=== PATIENT | female | born 1980 | race Caucasian/White ===

== ENCOUNTER 2019-02-04 18:31 | Inpatient (IN) | payer OTHER ==
[~2019-02-04] VITALS: Ht 165.1 cm; Wt 108.9 kg
[~2019-02-04 18:31] MED LIST: ALBU2.5V5 IH
[2019-02-04 19:00] LABS: BASO # 0.1 x10^3/uL (0.0-0.2); BASO % 1 % (0-3); EOS # 0.2 x10^3/uL (0.0-0.7); EOS % 3 % (0-3); HEMATOCRIT 43.3 % (36.0-47.0); HEMOGLOBIN 14.2 g/dL (12.0-15.5); LYMPH # 2.2 x10^3/uL (1.0-4.8); LYMPH % 27 % (24-48); MEAN CORPUSCULAR HEMOGLOBIN 27 pg (25-35); MEAN CORPUSCULAR HGB CONC 33 g/dL (31-37); MEAN CORPUSCULAR VOLUME 84 fL (79-100); MONO # 0.6 x10^3/uL (0.0-1.1); MONO % 7 % (0-9); NEUT % 62 % (31-73); PLATELET COUNT 215 x10^3/uL (140-400); RED BLOOD COUNT 5.18 x10^6/uL (3.50-5.40); RED CELL DISTRIBUTION WIDTH 13.7 % (11.5-14.5); WHITE BLOOD COUNT 8.2 x10^3/uL (4.0-11.0)
[2019-02-04] MEDS ORDERED: ASPIRIN CHEWABLE 81 MG TABLET. PO ONE (19:00)
--- NOTE | 2019-02-04 19:00 | PHYS DOC ---
Past Medical History Past Medical History: Anxiety, Arthritis, Asthma, Bipolar, Depression, Diabetes-Type II, Hypertension, Kidney Infection, Stroke, UTI, Other Additional Past Medical Histor: DDD, STRESS FX LOWER BACK, GESTATIONAL STROKE Past Surgical History: Appendectomy, Cholecystectomy Additional Past Surgical Histo: D&C Alcohol Use: None Drug Use: None Adult General Chief Complaint Chief Complaint: CHEST PAIN HPI HPI Patient is a 38 year old female presented to ER by EMS for evaluation of left substernal chest pain radiating through to her back that been going OFF AND ON for 2 weeks. He denies any cough fever, no trouble breathing. Patient has history of ENLARGED HEART and hypertension. Patient is supposed to be on carvedilol, she ran out of her medication for several months. She has not seen her heart doctor at [facility] FOR A WHILE. She denies any history of diabetic, no history of smoking. Patient had no history of blood clot disorder, no recent travel or operation. Patient described the pain as aching, squeezing in nature. All other ROS is negative unless otherwise noted in HPI Review of Systems Review of Systems See above Current Medications Current Medications Current Medications Medications (Trade) Dose Ordered Sig/Alyse Start Time Stop Time Status Last Admin Dose Admin Aspirin (Children'S Aspirin) 324 mg 1X ONCE 02/04/19 19:00 02/04/19 19:01 DC Enoxaparin Sodium (Lovenox 120mg Syringe) 110 mg 1X ONCE 02/04/19 20:00 02/04/19 20:01 Metoprolol Tartrate (Lopressor Vial) 5 mg 1X ONCE 02/04/19 19:30 02/04/19 19:31 DC Nitroglycerin (Nitrostat) 0.4 mg PRN Q5MIN PRN 02/04/19 19:30 Allergies Allergies Allergies Coded Allergies Type Severity Reaction Last Updated Verified morphine Allergy Intermediate HIVES, ABD CRAMPS 5/7/14 Yes ondansetron HCl Allergy Mild ABD CRAMPS 5/7/14 Yes Physical Exam Physical Exam See above Constitutional: Well developed, well nourished, no acute distress, non-toxic appearance. [] HENT: Normocephalic, atraumatic, bilateral external ears normal, oropharynx moist, no oral exudates, nose normal. [] Eyes: PERRLA, EOMI, conjunctiva normal, no discharge. [] Neck: Normal range of motion, no tenderness, supple, no stridor. [] Cardiovascular:Heart rate regular rhythm, no murmur [] Lungs & Thorax: Bilateral breath sounds clear to auscultation [] Abdomen: Bowel sounds normal, soft, no tenderness, no masses, no pulsatile masses. [] Skin: Warm, dry, no erythema, no rash. [] Back: No tenderness, no CVA tenderness. [] Extremities: No tenderness, no cyanosis, no clubbing, ROM intact, no edema. [] Neurologic: Alert and oriented X 3, normal motor function, normal sensory function, no focal deficits noted. [] Psychologic: Affect normal, judgement normal, mood normal. [] Current Patient Data Vital Signs Vital Signs Date Time Temp Pulse Resp B/P (MAP) Pulse Ox O2 Delivery O2 Flow Rate FiO2 02/04/19 18:44 98.1 78 18 186/108 (134) 99 Room Air 98.1 Lab Values Laboratory Tests Test 02/04/19 18:37 White Blood Count 8.2 x10^3/uL (4.0-11.0) Red Blood Count 5.18 x10^6/uL (3.50-5.40) Hemoglobin 14.2 g/dL (12.0-15.5) Hematocrit 43.3 % (36.0-47.0) Mean Corpuscular Volume 84 fL (79-100) Mean Corpuscular Hemoglobin 27 pg (25-35) Mean Corpuscular Hemoglobin Concent 33 g/dL (31-37) Red Cell Distribution Width 13.7 % (11.5-14.5) Platelet Count 215 x10^3/uL (140-400) Neutrophils (%) (Auto) 62 % (31-73) Lymphocytes (%) (Auto) 27 % (24-48) Monocytes (%) (Auto) 7 % (0-9) Eosinophils (%) (Auto) 3 % (0-3) Basophils (%) (Auto) 1 % (0-3) Neutrophils # (Auto) 5.0 x10^3/uL (1.8-7.7) Lymphocytes # (Auto) 2.2 x10^3/uL (1.0-4.8) Monocytes # (Auto) 0.6 x10^3/uL (0.0-1.1) Eosinophils # (Auto) 0.2 x10^3/uL (0.0-0.7) Basophils # (Auto) 0.1 x10^3/uL (0.0-0.2) Prothrombin Time 12.5 SEC (11.7-14.0) Prothrombin Time INR 1.0 (0.8-1.1) Sodium Level 142 mmol/L (136-145) Potassium Level 3.9 mmol/L (3.5-5.1) Chloride Level 105 mmol/L (98-107) Carbon Dioxide Level 30 mmol/L (21-32) Anion Gap 7 (6-14) Blood Urea Nitrogen 15 mg/dL (7-20) Creatinine 1.0 mg/dL (0.6-1.0) Estimated GFR (Cockcroft-Gault) 62.1 BUN/Creatinine Ratio 15 (6-20) Glucose Level 110 mg/dL (70-99) H Calcium Level 8.8 mg/dL (8.5-10.1) Magnesium Level 1.9 mg/dL (1.8-2.4) Total Bilirubin 0.3 mg/dL (0.2-1.0) Aspartate Amino Transferase (AST) 18 U/L (15-37) Alanine Aminotransferase (ALT) 20 U/L (14-59) Alkaline Phosphatase 77 U/L (46-116) Troponin I Quantitative 0.747 ng/mL (0.000-0.055) FC-Bam-U-Type Natriuretic Peptide 1830 pg/mL (0-124) H Total Protein 6.6 g/dL (6.4-8.2) Albumin 3.1 g/dL (3.4-5.0) L Albumin/Globulin Ratio 0.9 (1.0-1.7) L Lipase 150 U/L (73-393) Laboratory Tests 02/04/19 18:37 Laboratory Tests 02/04/19 18:37 EKG EKG EKG was read by this physician at 1842, sinus rhythm, heart rate of 72 beats per minutes, no STEMI. Radiology/Procedures Radiology/Procedures [][facility] [address] [place] [address] IMAGING REPORT Signed PATIENT: ESTEPHANIA VARGHESE SACCOUNT: [id number] : 1980 LOCATION: ER AGE: 38 SEX: F EXAM STATUS: PRE ER ORD. PHYSICIAN: COLBY GALLARDO DO REASON: chest pain PROCEDURE: PORTABLE CHEST 1V Study: PORTABLE CHEST 1V Indication: Chest pain. Comparison: None recent Findings: The cardiomediastinal silhouette is enlarged. No lobar infiltrate, layering effusion or pneumothorax. No overt central vascular congestion. Impression: The cardiomediastinal silhouette is enlarged but without radiographic findings of overt failure. Electronically signed by: YVON HAMMER MD (02/04/2019 7:31 PM) [facility] DICTATED and SIGNED BY: YVON HAMMER MD DATE: 02/04/191930 Course & Med Decision Making Course & Med Decision Making Pertinent Labs and Imaging studies reviewed. (See chart for details) Patient'S troponin is elevated, her blood pressure elevated. Patient was admitted to hospital for cardiology evaluation. Dragon Disclaimer Dragon Disclaimer This electronic medical record was generated, in whole or in part, using a voice recognition dictation system. The HEART Score for CP Pts HEART Score for Chest Pain: HEART Score for Chest Pain Response (Comments) Value History Moderately Suspicious 1 ECG Nonspecific Repolarizatio 1 Age < 45 0 Risk Factors 1 or 2 Risk Factors 1 Troponin >3 x Normal Limit 2 Total 5 Risk Factors: Risk Factors: DM, Current or recent (<one month) smoker, HTN, HLP, family his tory of CAD, obesity. Risk Scores: Score 0 - 3: 2.5% MACE over next 6 weeks - Discharge Home Score 4 - 6: 20.3% MACE over next 6 weeks - Admit for Clinical Observation Score 7 - 10: 72.7% MACE over next 6 weeks - Early Invasive Strategies Departure Departure Impression: Primary Impression: NSTEMI (non-ST elevated myocardial infarction) Additional Impression: Hypertension Disposition: ADMITTED INPATIENT Admitting Physician: LETTY (MIGUELINA) Condition: STABLE Referrals: BHAKTI MALONE MD (PCP) Problem Qualifiers COLBY GALLARDO DO Feb 04, 2019 19:00
[2019-02-04 19:08] LABS: PROTHROMBIN TIME PATIENT 12.5 SEC (11.7-14.0)
[2019-02-04 19:12] LABS: CALCIUM 8.8 mg/dL (8.5-10.1); GFR 62.1; POTASSIUM 3.9 mmol/L (3.5-5.1)
[2019-02-04 19:18] LABS: ALBUMIN 3.1 g/dL (3.4-5.0); ALBUMIN/GLOBULIN RATIO 0.9 (1.0-1.7); MAGNESIUM 1.9 mg/dL (1.8-2.4); TOTAL BILIRUBIN 0.3 mg/dL (0.2-1.0); TOTAL PROTEIN 6.6 g/dL (6.4-8.2)
[2019-02-04] MEDS ORDERED: METOPROLOL TARTRATE 5 MG/5 ML VIAL. IVP ONE (19:30)
[2019-02-04] MEDS ORDERED: NITROGLYCERIN SUBLINGUAL 0.4 MG BOTTLE OF 25. SL PRN (19:30)
--- NOTE | 2019-02-04 19:34 | RAD ---
Study: PORTABLE CHEST 1V Indication: Chest pain. Comparison: None recent Findings: The cardiomediastinal silhouette is enlarged. No lobar infiltrate, layering effusion or pneumothorax. No overt central vascular congestion. Impression: The cardiomediastinal silhouette is enlarged but without radiographic findings of overt failure. Electronically signed by: YVON HAMMER MD (02/04/2019 7:31 PM) [facility]
[2019-02-04 21:12] VITALS: BP 194/110
--- NOTE | 2019-02-04 22:19 | NUR ---
Patient arrived to unit at approx 2120 accompanied by ED nurse. No complaints of pain at this time. VS taken- BP elevated. Assessment complete. Patient admits to smoking meth approx 2 1/2 weeks ago, and that she has had a drug problem in the past. Does not drink alcohol. per patient has had 21 miscarriages and 7 live births. Patient also states that she has had a lot of stress and anxiety lately. Orientated patient to unit. Call light in reach, bed in low locked position. Reminded patient to call for assistance when ambulating. Will continue to monitor.
[2019-02-04] MEDS ORDERED: ALBUTEROL SULFATE 2.5 MG/3 ML NEBU. INH PRN (22:45)
[2019-02-04] MEDS ORDERED: METOPROLOL TARTRATE 5 MG/5 ML VIAL. IVP PRN (22:45)
[2019-02-04] MEDS ORDERED: FUROSEMIDE 40 MG/4 ML VIAL. IVP SCH (23:00)
[2019-02-04] MEDS ORDERED: LISINOPRIL 10 MG TABLET PO SCH (23:00)
[2019-02-04 23:13] VITALS: BP 156/105
[2019-02-05] VITALS (18 sets, daily range): BP systolic 117–175; BP diastolic 49–105
[2019-02-05 00:20] LABS: U PREG PATIENT NEGATIVE (NEG)
[2019-02-05 03:49] LABS: BARBITURATES NEG (NEG); BENZODIAZEPINES NEG (NEG); CANNABINOIDS NEG (NEG); COCAINE NEG (NEG); METHADONE NEG (NEG); OPIATES NEG (NEG); PHENCYCLIDINE NEG (NEG)
[2019-02-05 04:02] LABS: AMPHETAMINE/METHAMPHETAMINE NEG (NEG)
[2019-02-05 07:13] LABS: CALCIUM 8.6 mg/dL (8.5-10.1); CREATININE 0.9 mg/dL (0.6-1.0); GFR 70.1; POTASSIUM 4.1 mmol/L (3.5-5.1)
--- NOTE | 2019-02-05 07:32 | EKG ---
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
--- NOTE | 2019-02-05 08:56 | PDOC1 ---
History and Physical Date of Admission Date of Admission DATE: 02/05/19 TIME: 08:54 Identification/Chief Complaint Chief Complaint Chest pain, shortness of breath Source Source: Patient History of Present Illness History of Present Illness Ms Greer is a 38 year old female w/ PMHx chronic CHF, peripartum cardiomyopathy, Anxiety, Asthma, Bipolar, Depression, Diabetes-Type II, Hypertension, gestational CVA, methamphetamine abuse who presented to ER by EMS for evaluation of left substernal chest pain radiating through to her back that been going for 2 weeks. She denies any cough fever, recent sick contacts. On ROS with nursing overnight she admits to using methamphetamine 2.5 weeks ago. She is upset about her friend who is in ICU at our hospital currently. Patient is supposed to be on carvedilol, she ran out of her medication for several months (over a year). She has not seen her security clerk at [facility]. She denies any history of smoking. Patient had no history of blood clot disorder, no recent travel or operation. Patient described the pain as aching, squeezing in nature. BNP 1830, Trop 0.747. Glucose 110. Enlarged heart on CXR. EKG - sinus rhythm, heart rate of 72 beats per minutes, no STEMI. Past Medical History Cardiovascular: HTN Pulmonary: Asthma GI: No pertinent hx Heme/Onc: No pertinent hx Hepatobiliary: No pertinent hx Psych: Addictions, Bipolar, Depression Rheumatologic: No pertinent hx Infectious disease: No pertinent hx ENT: No pertinent hx Renal/: No pertinent hx Endocrine: No pertinent hx Dermatology: No pertinent hx Past Surgical History Past Surgical History: Appendectomy, Cholecystectomy Family History Family History: Coronary Artery Disease, Heart Disease, High Cholestrol, Hypertension Social History Smoke: No ALCOHOL: none Drugs: Crystal meth Current Problem List Problem List Problems Medical Problems: (1) Chest pain Status: Acute (2) Hypertension Status: Acute (3) NSTEMI (non-ST elevated myocardial infarction) Status: Acute Current Medications Current Medications Current Medications Aspirin (Children'S Aspirin) 324 mg 1X ONCE PO ; Start 02/04/19 at 19:00; Stop 02/04/19 at 19:01; Status DC Metoprolol Tartrate (Lopressor Vial) 5 mg 1X ONCE IVP Last administered on 02/04/19at 20:15; Start 02/04/19 at 19:30; Stop 02/04/19 at 19:31; Status DC Nitroglycerin (Nitrostat) 0.4 mg PRN Q5MIN PRN SL CHEST PAIN; Start 02/04/19 at 19:30 Enoxaparin Sodium (Lovenox 120mg Syringe) 110 mg 1X ONCE SQ Last administered on 02/04/19at 20:00; Start 02/04/19 at 20:00; Stop 02/04/19 at 20:01; Status DC Influenza Virus Vaccine Quadrival (Afluria Quad 2019-20 (3yr Up) Syringe) 0.5 ml ONCE ONCE VAX IM ; Start 02/05/19 at 09:00; Stop 02/05/19 at 09:01 Albuterol Sulfate (Ventolin Neb Soln) 2.5 mg PRN Q2HRS PRN INH dyspnea; Start 02/04/19 at 22:45 Furosemide (Lasix) 40 mg BID92 IVP ; Start 02/04/19 at 23:00; Stop 02/05/19 at 00:10; Status DC Metoprolol Tartrate (Lopressor Vial) 5 mg PRN Q6HRS PRN IVP HYPERTENSION; Start 02/04/19 at 22:45 Lisinopril (Prinivil) 10 mg DAILY PO ; Start 02/04/19 at 23:00; Stop 02/05/19 at 00:10; Status DC Furosemide (Lasix) 40 mg BID92 IVP ; Start 02/05/19 at 09:00 Lisinopril (Prinivil) 10 mg DAILY PO ; Start 02/05/19 at 09:00 Active Scripts Active Reported Albuterol Sulfate 2.5 Mg/3 Ml Vial.neb 2.5 Mg IH Allergies Allergies: Coded Allergies: morphine (Verified Allergy, Intermediate, HIVES, ABD CRAMPS, 06/30/13) ondansetron HCl (Verified Allergy, Mild, ABD CRAMPS, 06/30/13) latex (Verified Adverse Reaction, Intermediate, Hives, 02/04/19) ROS General: YES: Fatigue, Malaise; No: Chills, Night Sweats, Appetite, Other PSYCHOLOGICAL ROS: YES: Anxiety; No: Behavioral Disorder, Concentration difficultie, Decreased libido, Depression, Disorientation, Hallucinations, Hostility, Irritablity, Memory difficulties, Mood Swings, Obsessive thoughts, Physical abuse, Sexual abuse, Sleep disturbances, Suicidal ideation, Other Eyes: No Blurry vision, No Decreased vision, No Double vision, No Dry eyes, No Excessive tearing, No Eye Pain, No Itchy Eyes, No Loss of vision, No Photophobia, No Scotomata, No Uses contacts, No Uses glasses, No Other HEENT: No: Heacaches, Visual Changes, Hearing change, Nasal congestion, Nasal discharge, Oral lesions, Sinus pain, Sore Throat, Epistaxis, Sneezing, Snoring, Tinnitus, Vertigo, Vocal changes, Other ALLERGY AND IMMUNOLOGY: No: Hives, Insect Bite Sensitivity, Itchy/Watery Eyes, Nasal Congestion, Post Nasal Drip, Seasonal Allergies, Other Hematological and Lymphatic: No: Bleeding Problems, Blood Clots, Blood Transfusions, Brusing, Night Sweats, Pallor, Swollen Lymph Nodes, Other ENDOCRINE: No: Breast Changes, Galactorrhea, Hair Pattern Changes, Hot Flashes, Malaise/lethargy, Mood Swings, Palpitations, Polydipsia/polyuria, Skin Changes, Temperature Intolerance, Unexpected Weight Changes, Other Breast: No New/Changing Breast Lumps, No Nipple changes, No Nipple discharge, No Other Respiratory: YES: Cough; No: Hemoptysis, Orthopnea, Pleuritic Pain, Shortness of breath, SOB with excertion, Sputum Changes, Stridor, Tachypnea, Wheezing, Other Cardiovascular: yes Chest Pain, yes Paroxysmal Noc. Dyspnea; No Palpitations, No Orthopnea, No Edema, No Lt Headedness, No Other Gastrointestinal: No Nausea, No Vomiting, No Abdominal Pain, No Diarrhea, No Constipation, No Melena, No Hematochezia, No Other Genitourinary: No Dysuria, No Frequency, No Incontinence, No Hematuria, No Retention, No Discharge, No Urgency, No Pain, No Flank Pain, No Other, No , No , No , No , No , No , No Musculoskeletal: No Gait Disturbance, No Joint Pain, No Joint Stiffness, No Joint Swelling, No Muscle Pain, No Muscular Weakness, No Pain In:, No Swelling In:, No Other Neurological: No Behavorial Changes, No Bowel/Bladder ControlChng, No Confusion, No Dizziness, No Gait Disturbance, No Headaches, No Impaired Coord/balance, No Memory Loss, No Numbness/Tingling, No Seizures, No Speech Problems, No Tremors, No Visual Changes, No Weakness, No Other Skin: No Dry Skin, No Eczema, No Hair Changes, No Lumps, No Mole Changes, No Mottling, No Nail Changes, No Pruritus, No Rash, No Skin Lesion Changes, No Other, No Acne Physical Exam General: Alert, Oriented X3, Cooperative, No acute distress HEENT: Atraumatic, PERRLA, EOMI, Mucous membr. moist/pink Lungs: Clear to auscultation, Normal air movement Heart: S1S2, RRR, no thrills, no rubs Abdomen: Normal bowel sounds, Soft, No tenderness, No hepatosplenomegaly, No masses Rectal Exam: not examined Extremities: No clubbing, No cyanosis, No edema, Normal pulses, No tenderness/swelling Skin: No rashes, No breakdown, No significant lesion Neuro: Normal gait, Normal speech, Strength at 5/5 X4 ext, Normal tone, Sensation intact, Cranial nerves 3-12 NL, Reflexes 2+ Psych/Mental Status: Mental status NL, Mood NL Vitals Vitals Vital Signs Date Time Temp Pulse Resp B/P (MAP) Pulse Ox O2 Delivery O2 Flow Rate FiO2 02/05/19 07:00 98.0 68 16 163/104 (123) 97 Room Air 98.0 Labs Labs Laboratory Tests Test 02/04/19 18:37 02/05/19 00:02 02/05/19 01:15 02/05/19 06:15 White Blood Count 8.2 x10^3/uL (4.0-11.0) Red Blood Count 5.18 x10^6/uL (3.50-5.40) Hemoglobin 14.2 g/dL (12.0-15.5) Hematocrit 43.3 % (36.0-47.0) Mean Corpuscular Volume 84 fL (79-100) Mean Corpuscular Hemoglobin 27 pg (25-35) Mean Corpuscular Hemoglobin Concent 33 g/dL (31-37) Red Cell Distribution Width 13.7 % (11.5-14.5) Platelet Count 215 x10^3/uL (140-400) Neutrophils (%) (Auto) 62 % (31-73) Lymphocytes (%) (Auto) 27 % (24-48) Monocytes (%) (Auto) 7 % (0-9) Eosinophils (%) (Auto) 3 % (0-3) Basophils (%) (Auto) 1 % (0-3) Neutrophils # (Auto) 5.0 x10^3/uL (1.8-7.7) Lymphocytes # (Auto) 2.2 x10^3/uL (1.0-4.8) Monocytes # (Auto) 0.6 x10^3/uL (0.0-1.1) Eosinophils # (Auto) 0.2 x10^3/uL (0.0-0.7) Basophils # (Auto) 0.1 x10^3/uL (0.0-0.2) Prothrombin Time 12.5 SEC (11.7-14.0) Prothromb Time International Ratio 1.0 (0.8-1.1) Activated Partial Thromboplast Time 26 SEC (24-38) Sodium Level 142 mmol/L (136-145) 139 mmol/L (136-145) Potassium Level 3.9 mmol/L (3.5-5.1) 4.1 mmol/L (3.5-5.1) Chloride Level 105 mmol/L (98-107) 105 mmol/L (98-107) Carbon Dioxide Level 30 mmol/L (21-32) 27 mmol/L (21-32) Anion Gap 7 (6-14) 7 (6-14) Blood Urea Nitrogen 15 mg/dL (7-20) 15 mg/dL (7-20) Creatinine 1.0 mg/dL (0.6-1.0) 0.9 mg/dL (0.6-1.0) Estimated GFR (Cockcroft-Gault) 62.1 70.1 BUN/Creatinine Ratio 15 (6-20) Glucose Level 110 mg/dL (70-99) 97 mg/dL (70-99) Calcium Level 8.8 mg/dL (8.5-10.1) 8.6 mg/dL (8.5-10.1) Magnesium Level 1.9 mg/dL (1.8-2.4) Total Bilirubin 0.3 mg/dL (0.2-1.0) Aspartate Amino Transf (AST/SGOT) 18 U/L (15-37) Alanine Aminotransferase (ALT/SGPT) 20 U/L (14-59) Alkaline Phosphatase 77 U/L (46-116) Troponin I Quantitative 0.747 ng/mL (0.000-0.055) 0.712 ng/mL (0.000-0.055) 0.789 ng/mL (0.000-0.055) XK-Ugr-N-Type Natriuretic Peptide 1830 pg/mL (0-124) Total Protein 6.6 g/dL (6.4-8.2) Albumin 3.1 g/dL (3.4-5.0) Albumin/Globulin Ratio 0.9 (1.0-1.7) Lipase 150 U/L (73-393) Thyroid Stimulating Hormone (TSH) 1.028 uIU/mL (0.358-3.74) Urine Test Negative (NEG) Urine Opiates Screen Neg (NEG) Urine Methadone Screen Neg (NEG) Urine Barbiturates Neg (NEG) Urine Phencyclidine Screen Neg (NEG) Urine Amphetamine/Methamphetamine Neg (NEG) Urine Benzodiazepines Screen Neg (NEG) Urine Cocaine Screen Neg (NEG) Urine Cannabinoids Screen Neg (NEG) Urine Ethyl Alcohol Neg (NEG) Laboratory Tests Test 02/04/19 18:37 02/05/19 00:02 02/05/19 01:15 02/05/19 06:15 White Blood Count 8.2 x10^3/uL (4.0-11.0) Red Blood Count 5.18 x10^6/uL (3.50-5.40) Hemoglobin 14.2 g/dL (12.0-15.5) Hematocrit 43.3 % (36.0-47.0) Mean Corpuscular Volume 84 fL (79-100) Mean Corpuscular Hemoglobin 27 pg (25-35) Mean Corpuscular Hemoglobin Concent 33 g/dL (31-37) Red Cell Distribution Width 13.7 % (11.5-14.5) Platelet Count 215 x10^3/uL (140-400) Neutrophils (%) (Auto) 62 % (31-73) Lymphocytes (%) (Auto) 27 % (24-48) Monocytes (%) (Auto) 7 % (0-9) Eosinophils (%) (Auto) 3 % (0-3) Basophils (%) (Auto) 1 % (0-3) Neutrophils # (Auto) 5.0 x10^3/uL (1.8-7.7) Lymphocytes # (Auto) 2.2 x10^3/uL (1.0-4.8) Monocytes # (Auto) 0.6 x10^3/uL (0.0-1.1) Eosinophils # (Auto) 0.2 x10^3/uL (0.0-0.7) Basophils # (Auto) 0.1 x10^3/uL (0.0-0.2) Prothrombin Time 12.5 SEC (11.7-14.0) Prothromb Time International Ratio 1.0 (0.8-1.1) Activated Partial Thromboplast Time 26 SEC (24-38) Sodium Level 142 mmol/L (136-145) 139 mmol/L (136-145) Potassium Level 3.9 mmol/L (3.5-5.1) 4.1 mmol/L (3.5-5.1) Chloride Level 105 mmol/L (98-107) 105 mmol/L (98-107) Carbon Dioxide Level 30 mmol/L (21-32) 27 mmol/L (21-32) Anion Gap 7 (6-14) 7 (6-14) Blood Urea Nitrogen 15 mg/dL (7-20) 15 mg/dL (7-20) Creatinine 1.0 mg/dL (0.6-1.0) 0.9 mg/dL (0.6-1.0) Estimated GFR (Cockcroft-Gault) 62.1 70.1 BUN/Creatinine Ratio 15 (6-20) Glucose Level 110 mg/dL (70-99) 97 mg/dL (70-99) Calcium Level 8.8 mg/dL (8.5-10.1) 8.6 mg/dL (8.5-10.1) Magnesium Level 1.9 mg/dL (1.8-2.4) Total Bilirubin 0.3 mg/dL (0.2-1.0) Aspartate Amino Transf (AST/SGOT) 18 U/L (15-37) Alanine Aminotransferase (ALT/SGPT) 20 U/L (14-59) Alkaline Phosphatase 77 U/L (46-116) Troponin I Quantitative 0.747 ng/mL (0.000-0.055) 0.712 ng/mL (0.000-0.055) 0.789 ng/mL (0.000-0.055) PY-Cve-D-Type Natriuretic Peptide 1830 pg/mL (0-124) Total Protein 6.6 g/dL (6.4-8.2) Albumin 3.1 g/dL (3.4-5.0) Albumin/Globulin Ratio 0.9 (1.0-1.7) Lipase 150 U/L (73-393) Thyroid Stimulating Hormone (TSH) 1.028 uIU/mL (0.358-3.74) Urine Test Negative (NEG) Urine Opiates Screen Neg (NEG) Urine Methadone Screen Neg (NEG) Urine Barbiturates Neg (NEG) Urine Phencyclidine Screen Neg (NEG) Urine Amphetamine/Methamphetamine Neg (NEG) Urine Benzodiazepines Screen Neg (NEG) Urine Cocaine Screen Neg (NEG) Urine Cannabinoids Screen Neg (NEG) Urine Ethyl Alcohol Neg (NEG) Images Images CXR - The cardiomediastinal silhouette is enlarged. No lobar infiltrate, layering effusion or pneumothorax. No overt central vascular congestion. Impression: The cardiomediastinal silhouette is enlarged but without radiographic findings of overt failure. VTE Prophylaxis Ordered VTE Prophylaxis Devices: Yes VTE Pharmacological Prophylaxi: No Assessment/Plan Assessment/Plan A/P: NSTEMI - ACS symptoms, likely demand ischemia with recent amphetamine use and off her BB and VERITO therapy. Will reinitiate medications HTN urgency - restart meds HLD - needs statin DM2? - previously documented, will get A1c, this may have been gestational DM as she claims to have had 28 pregnancies with 7 living children Cardiomyopathy - EF 45% previously - peripartum also methamphetamine induced, a pparently also has family history of CHF Methamphetamine abuse - a few days ago Anxiety with Depression - self treating with amphetamines. Depressed currently about her only friend dying in ICU today. Gestational CVA - per history. No residual sx Systolic CHF - needs VERITO, BB, statin, ASA. FEN - NPO pending cardiac evaluation PPX - SCDs FULL CODE Dispo - inpatient for ACS LILLIAM MCINTYRE MD Feb 05, 2019 08:56
[2019-02-05 08:58] LABS: CHOLESTEROL/HDL RATIO 4.6
[2019-02-05] MEDS ORDERED: LISINOPRIL 10 MG TABLET PO SCH (09:00)
[2019-02-05] MEDS ORDERED: FUROSEMIDE 40 MG/4 ML VIAL. IVP SCH (09:00)
[2019-02-05] MEDS ORDERED: FLU VAX QS 2019-20 (36MOS+)/PF 0.5 ML SYRINGE. VAX IM ONE (09:00)
--- NOTE | 2019-02-05 11:35 | NUR ---
SS following for discharge planning. SS reviewed pt chart. Pt is from home and is currently on room air. SS will continue to follow for discharge planning.
--- NOTE | 2019-02-05 12:54 | CARD ---
MR#: [id number] Date of Study: 02/05/2019 Ordering Physician: BREANNA BURNS, Referring Physician: BREANNA BURNS, Tech: Kailey Schneider APPROVED REPORT EXAM: Two-dimensional and M-mode echocardiogram with Doppler and color Doppler. Other Information Quality : AverageHR: 64bpm INDICATION Cardiomyopathy Non STEMI 2D DIMENSIONS RVDd2.8 (2.9-3.5cm)Left Atrium(2D)4.4 (1.6-4.0cm) IVSd1.3 (0.7-1.1cm)Aortic Root(2D)3.0 (2.0-3.7cm) LVDd5.3 (3.9-5.9cm)LVOT Diameter2.2 (1.8-2.4cm) PWd1.3 (0.7-1.1cm)LVDs4.2 (2.5-4.0cm) FS (%) 21.1 %SV58.0 ml LVEF(%)42.6 (>50%) Aortic Valve AoV Peak Yao.101.9cm/sAoV VTI19.0cm AO Peak GR.4.2mmHgLVOT Peak Yao.82.6cm/s LVOT VTI 16.63cmAO Mean GR.2mmHg CHAD (VMAX)2.85fv9QLO (VTI)3.27cm2 Mitral Valve MV E Aiamaagu90.0cm/sMV DECEL [id number] MV A Ynpaittf59.2cm/sMV [id number] E/A Ratio2.9MVA (PHT)3.92cm2 TDI E/Lateral E'12.4E/Medial E'19.3 Pulmonary Valve PV Peak Lrzwufmo36.9cm/sPV Peak Grad.3mmHg Tricuspid Valve RAP [id number] Peak Gr.23mmHg [id number] Pulmonary Vein S1 Fcfdybss42.2cm/sD2 Hkawwwtd97.2cm/s PVa [id number] LEFT VENTRICLE The left ventricle is normal size. There is moderate concentric left ventricular hypertrophy. The lef t ventricular systolic function is mildly diminished. The Ejection Fraction is 45%. Tissue Doppler im aging reveals moderate left ventricular diastolic dysfunction. RIGHT VENTRICLE The right ventricle is normal size. There is normal right ventricular wall thickness. The right ventr icular systolic function is normal. ATRIA The left atrium size is normal. The right atrium size is normal. The interatrial septum is intact wit h no evidence for an atrial septal defect or patent foramen ovale as noted on 2-D or Doppler imaging. AORTIC VALVE The aortic valve is normal in structure and function. Doppler and Color Flow revealed no significant aortic regurgitation. There is no significant aortic valvular stenosis. MITRAL VALVE The mitral valve is normal in structure and function. There is no evidence of mitral valve prolapse. There is no mitral valve stenosis. Doppler and Color-flow revealed trace mitral regurgitation. TRICUSPID VALVE The tricuspid valve is normal in structure and function. Doppler and Color Flow revealed trace tricus pid regurgitation with an estimated PAP of 26 mmHg. There is no tricuspid valve stenosis. PULMONIC VALVE The pulmonary valve is normal in structure and function. Doppler and Color Flow revealed no pulmonic valvular regurgitation. GREAT VESSELS The aortic root is normal in size. The IVC is normal in size and collapses >50% with inspiration. PERICARDIAL EFFUSION There is no evidence of significant pericardial effusion. Critical Notification Critical Value: No <Conclusion> The left ventricular systolic function is mildly diminished. The Ejection Fraction is 45%. There is moderate concentric left ventricular hypertrophy. Tissue Doppler imaging reveals moderate left ventricular diastolic dysfunction. Trace mitral regurgitation. Trace tricuspid regurgitation with an estimated PAP of 26 mmHg. There is no evidence of significant pericardial effusion. Signed by : Domenic Seaman, Electronically Approved : 02/05/2019 12:54:06
--- NOTE | 2019-02-05 12:59 | PDOC2 ---
BREANNA BURNS INSULATION WORKER INTERIOR SURFACE 02/05/19 1259: CARDIAC CONSULT DATE OF CONSULT Date of Consult DATE: 02/05/19 TIME: 0930 REASON FOR CONSULT Reason for Consult: NSTEMI REFERRING PHYSICIAN Referring Physician: Juaquin SOURCE Source: Chart review, Patient HISTORY OF PRESENT ILLNESS HISTORY OF PRESENT ILLNESS This is a pleasant 38 yo female admitted for complains of chest pain. She has been having some chest pain in the last 2 weeks. More so in the last 3-4 days. This is worse with exertion describing it as tightness to her left chest and associated with ADDISON, some nausea and occasional dizziness and palpitations. She does admits that she took some meth 3 weeks ago and thats the last time citing that she was stressed that her friend was in ICU. UDS negative so far. She is known for peripartum CM but has not had any ischemic workup in the past and she saw Dr. Holliday from [facility] 1.5 yrs ago [address] saw Dr. Varghese in 03/2018 who is no longer doing primary care. She was on coreg till about 1.5 months when she ran out and she does did not get to a PCP for a refill. Denies any recent falls injury and no tobaccoism, recent liong distance travel. NO CAD, VTE or arrhythmias in the past. She has 5 children 3 of whom have autism. PAST MEDICAL HISTORY Cardiovascular: HTN, Hyperlipidemia, Other (peripartum cardiomyopathy) Pulmonary: Asthma CENTRAL NERVOUS SYSTEM: Migraine GI: GERD Heme/Onc: Anemia NOS Hepatobiliary: Cholelithiasis Psych: Anxiety Musculoskeletal: Other (none) Infectious disease: No pertinent hx ENT: No pertinent hx Renal/: Other (bladder disease? unknown type referred to [facility]) Endocrine: No pertinent hx Dermatology: No pertinent hx Grav: 7 Para: 6 PAST SURGICAL HISTORY Past Surgical History: Appendectomy, Cholecystectomy, Tubal Ligation, Other (D&C) FAMILY HISTORY Family History: Coronary Artery Disease (father) SOCIAL HISTORY Smoke: No ALCOHOL: none Drugs: Crystal meth Lives: with Family CURRENT MEDICATIONS CURRENT MEDICATIONS Current Medications Medications (Trade) Dose Ordered Sig/Alyse Route PRN Reason Start Time Stop Time Status Last Admin Dose Admin Metoprolol Tartrate (Lopressor Vial) 5 mg 1X ONCE IVP 02/04/19 19:30 02/04/19 19:31 DC 02/04/19 20:15 Enoxaparin Sodium (Lovenox 120mg Syringe) 110 mg 1X ONCE SQ 02/04/19 20:00 02/04/19 20:01 DC 02/04/19 20:00 Lisinopril (Prinivil) 10 mg DAILY PO 02/05/19 09:00 02/05/19 10:27 ALLERGIES ALLERGIES: Coded Allergies: morphine (Verified Allergy, Intermediate, HIVES, ABD CRAMPS, 06/30/13) ondansetron HCl (Verified Allergy, Mild, ABD CRAMPS, 06/30/13) latex (Verified Adverse Reaction, Intermediate, Hives, 02/04/19) ROS Review of System 14 point ROS evaluated with pertinent positives noted per HPI PHYSICAL EXAM General: Alert, Oriented X3, Cooperative, No acute distress HEENT: Atraumatic, Mucous membr. moist/pink Lungs: Clear to auscultation, Normal air movement Heart: Regular rate (SR), Normal S1, Normal S2, Other (3/6 systolic murmur to LLS border) Abdomen: Soft, No tenderness Extremities: No cyanosis, No edema Skin: No breakdown, No significant lesion Neuro: Normal speech, Sensation intact Psych/Mental Status: Mental status NL, Mood NL MUSCULOSKELETAL: Full range of motion without pain VITALS/I&O VITALS/I&O: Vital Signs Date Time Temp Pulse Resp B/P (MAP) Pulse Ox O2 Delivery O2 Flow Rate FiO2 02/05/19 11:11 98.1 69 16 117/78 (91) 98 Room Air 98.1 I & O 02/04/19 02/04/19 02/05/19 15:00 23:00 07:00 Intake Total 600 ml Output Total 150 ml Balance 450 ml LABS Lab: Laboratory Tests Test 02/04/19 18:37 02/05/19 00:02 02/05/19 01:15 02/05/19 06:15 White Blood Count 8.2 x10^3/uL (4.0-11.0) Red Blood Count 5.18 x10^6/uL (3.50-5.40) Hemoglobin 14.2 g/dL (12.0-15.5) Hematocrit 43.3 % (36.0-47.0) Mean Corpuscular Volume 84 fL (79-100) Mean Corpuscular Hemoglobin 27 pg (25-35) Mean Corpuscular Hemoglobin Concent 33 g/dL (31-37) Red Cell Distribution Width 13.7 % (11.5-14.5) Platelet Count 215 x10^3/uL (140-400) Neutrophils (%) (Auto) 62 % (31-73) Lymphocytes (%) (Auto) 27 % (24-48) Monocytes (%) (Auto) 7 % (0-9) Eosinophils (%) (Auto) 3 % (0-3) Basophils (%) (Auto) 1 % (0-3) Neutrophils # (Auto) 5.0 x10^3/uL (1.8-7.7) Lymphocytes # (Auto) 2.2 x10^3/uL (1.0-4.8) Monocytes # (Auto) 0.6 x10^3/uL (0.0-1.1) Eosinophils # (Auto) 0.2 x10^3/uL (0.0-0.7) Basophils # (Auto) 0.1 x10^3/uL (0.0-0.2) Prothrombin Time 12.5 SEC (11.7-14.0) Prothrombin Time INR 1.0 (0.8-1.1) Activated Partial Thromboplast Time 26 SEC (24-38) Sodium Level 142 mmol/L (136-145) 139 mmol/L (136-145) Potassium Level 3.9 mmol/L (3.5-5.1) 4.1 mmol/L (3.5-5.1) Chloride Level 105 mmol/L (98-107) 105 mmol/L (98-107) Carbon Dioxide Level 30 mmol/L (21-32) 27 mmol/L (21-32) Anion Gap 7 (6-14) 7 (6-14) Blood Urea Nitrogen 15 mg/dL (7-20) 15 mg/dL (7-20) Creatinine 1.0 mg/dL (0.6-1.0) 0.9 mg/dL (0.6-1.0) Estimated GFR (Cockcroft-Gault) 62.1 70.1 BUN/Creatinine Ratio 15 (6-20) Glucose Level 110 mg/dL (70-99) H 97 mg/dL (70-99) Calcium Level 8.8 mg/dL (8.5-10.1) 8.6 mg/dL (8.5-10.1) Magnesium Level 1.9 mg/dL (1.8-2.4) Total Bilirubin 0.3 mg/dL (0.2-1.0) Aspartate Amino Transferase (AST) 18 U/L (15-37) Alanine Aminotransferase (ALT) 20 U/L (14-59) Alkaline Phosphatase 77 U/L (46-116) Troponin I Quantitative 0.747 ng/mL (0.000-0.055) 0.712 ng/mL (0.000-0.055) 0.789 ng/mL (0.000-0.055) LM-Ycx-M-Type Natriuretic Peptide 1830 pg/mL (0-124) H Total Protein 6.6 g/dL (6.4-8.2) Albumin 3.1 g/dL (3.4-5.0) L Albumin/Globulin Ratio 0.9 (1.0-1.7) L Lipase 150 U/L (73-393) Thyroid Stimulating Hormone (TSH) 1.028 uIU/mL (0.358-3.74) Urine Test Negative (NEG) Urine Opiates Screen Neg (NEG) Urine Methadone Screen Neg (NEG) Urine Barbiturates Neg (NEG) Urine Phencyclidine Screen Neg (NEG) Urine Amphetamine/Methamphetamine Neg (NEG) Urine Benzodiazepines Screen Neg (NEG) Urine Cocaine Screen Neg (NEG) Urine Cannabinoids Screen Neg (NEG) Urine Ethyl Alcohol Neg (NEG) Triglycerides Level 165 mg/dL (0-150) H Cholesterol Level 189 mg/dL (0-200) LDL Cholesterol, Calculated 115 mg/dL (0-100) H VLDL Cholesterol, Calculated 33 mg/dL (0-40) Non-HDL Cholesterol Calculated 148 mg/dL (0-129) H HDL Cholesterol 41 mg/dL (40-60) Cholesterol/HDL Ratio 4.6 Laboratory Tests 02/04/19 18:37 Laboratory Tests 02/04/19 18:37 02/05/19 06:15 ASSESSMENT/PLAN ASSESSMENT/PLAN 1. NSTEMI: ACS symptoms 2. HTN urgency: better 3. HLP 4. Hx of peripartum CM 5. Hx of meth use: last use 3 weeks ago. UDS neg 6. Arrhythmias: brief episode likely atrial tach Recommendations 1. TTE today, lipids and TSH 2. LHC, risks and benefits discussed 3. Reinforce no meth use and complaince with BP meds. 4. Will restart coreg and will start on lisinopril. ASA 5. Dietitian for DASH diet. ANNEL PERRY MD 02/05/19 1421: CARDIAC CONSULT ASSESSMENT/PLAN ASSESSMENT/PLAN Patient seen and examined. Agree with SOFTWARE SPECIALIST's assessment and plan. Non-STEMI could be demand ischemia but considering the typical nature of patient's symptoms, ischemic etiology needs to be ruled out 2-D echo showed LVEF 45% with moderate LVH Agree with cardiac catheterization for definitive evaluation Start Coreg and lisinopril And titrate for better blood pressure control Thank you for your consultation BREANNA BURNS APRN Feb 05, 2019 12:59 ANNEL PERRY MD Feb 05, 2019 14:21
[2019-02-05] MEDS ORDERED: LIDOCAINE 1% PF 2 ML VIAL. ONE (13:21)
[2019-02-05] MEDS ORDERED: IOHEXOL 300 MG/ML 100ML VIAL. ONE (13:21)
[2019-02-05] MEDS ORDERED: MIDAZOLAM HCL/PF 5 MG/5 ML VIAL. ONE (14:04)
[2019-02-05] MEDS ORDERED: NITROGLYCERIN 200 MCG/2 ML SYRINGE FOR CATH/VASC LAB. ONE (14:04)
[2019-02-05] MEDS ORDERED: HEPARIN for IV BOLUS 10,000 UNIT/10 ML VIAL. ONE (14:04)
[2019-02-05] MEDS ORDERED: VERAPAMIL 5 MG/2 ML VIAL. ONE (14:04)
[2019-02-05] MEDS ORDERED: diphenhydrAMINE 50 MG/ML VIAL ONE (14:20)
[2019-02-05] MEDS ORDERED: diphenhydrAMINE 50 MG/ML VIAL IVP ONE (14:45)
[2019-02-05] MEDS ORDERED: LIDOCAINE 1% PF 2 ML VIAL. INJ ONE (14:45)
[2019-02-05] MEDS ORDERED: NITROGLYCERIN SUBLINGUAL 0.4 MG BOTTLE OF 25. SL PRN (14:45)
[2019-02-05] MEDS ORDERED: VERAPAMIL 5 MG/2 ML VIAL. IART ONE (14:45)
[2019-02-05] MEDS ORDERED: IOHEXOL 300 MG/ML 100ML VIAL. IART ONE (14:45)
[2019-02-05] MEDS ORDERED: MIDAZOLAM HCL/PF 5 MG/5 ML VIAL. IV ONE (14:45)
[2019-02-05] MEDS ORDERED: NITROGLYCERIN 200 MCG/2 ML SYRINGE FOR CATH/VASC LAB. IART ONE (14:45)
[2019-02-05] MEDS ORDERED: CONTRAST GIVEN. MC PRN (14:45)
[2019-02-05] MEDS ORDERED: HEPARIN for IV BOLUS 10,000 UNIT/10 ML VIAL. IART ONE (14:45)
--- NOTE | 2019-02-05 14:45 | PDOC ---
MODERATE SEDATION ASSESSMENT RISKS/ALTERNATIVES Risks/Alternatives Risks and alternatives of this type of sedation and procedure discussed with: RISK/ALTERNATIVES: Patient H & P ON CHART H & P H & P on chart and reviewed for co-morbid conditions and appropriate labs. H&P ON CHART: Yes STATUS PREG STATUS ASSESSED: N/A MEDS/ALLERGIES REVIEWED Meds/Allergies Reviewed Medications and Allergies including time and route of recently administered narcotics and sedatives. MEDS/ALLERGIES REVIEWED: Yes ASA RATING ASA RATING: III AIRWAY ASSESSMENT Airway Assessment Airway patency, oral function limitations, presence of caps, crowns, dentures, partials, and ability to extend neck assessed. AIRWAY ASSESSMENT: Yes MALLAMPATI SCORE MALLAMPATI SCORE: II PRE-SEDATION ASSESSMENT PRE-SEDATION ASSESSMENT: Yes ANNEL PERRY MD Feb 05, 2019 14:45
--- NOTE | 2019-02-05 14:51 | CARD ---
MR#: [id number] Date of Study: 02/05/2019 Ordering Physician: BREANNA BURNS, Referring Physician: BREANNA BURNS, Tech: RT Mimi (R) APPROVED REPORT Technologist: RT Mimi (R) CARLOS Nurse: Mireya Lira R.N. Procedure(s) performed: Left heart catheterization, selective coronary angiography and left ventricul ography via right transradial approach Fluoro Time:4.0 min Dose:53.7 Gycm2 Contrast:96 ml Moderate Sedation:26 min INDICATION The indication(s) include : non-STEMI . [facility] Clinical Frailty Scale [facility] Clinical Frailty Scale: Managing Well Heart Failure Heart Failure: Yes If Yes, Newly Diagnosed: No If Yes, HF Type: Systolic If Yes, NYHA Class: Class I PROCEDURE NARRATIVE After explaining the risks, benefits and alternative options, informed consent was obtained from stanley ent. Patient was brought to the cardiac Station Master and right wrist was prepped and draped in the usual fashion after confirming a positive modified Wilian's test. Arterial access was obtained in the righ t radial artery and a 6 Swazi sheath was inserted. 6 Swazi Zohaib catheter was used to perform maki ective angiography of the left and right coronary arteries. 6 Swazi pigtail catheter was used to pe rform left ventriculography. Patient tolerated the procedure well. Hemostasis was achieved using TR band. There were no immediate complications. The following findings were noted. FINDINGS 1. Hemodynamics: Left ventricular end-diastolic pressure of 26 mmHg. No pullback gradient across th e aortic valve. 2. Left ventriculography: Mild left ventricle systolic dysfunction with ejection fraction estimated at 40%. No significant mitral regurgitation seen. 3. Coronary angiography: a. The left main coronary artery arose from the left sinus of Valsalva, gave rise to the left anteri or descending and left circumflex arteries and did not show any significant stenosis. b. The left anterior descending artery did not show any significant stenosis. c. The left circumflex artery did not show any significant stenosis. d. The right coronary artery was a large and dominant vessel arising from the right sinus of Valsalv a that did not show any significant stenosis. Conclusion 1. No significant coronary artery disease 2. Mild left ventricle systolic dysfunction with ejection fraction estimated at 40% Recommendations Patient's non-STEMI is most probably type 2/demand ischemia Recommend medical management Signed by : Domenic Seaman, Electronically Approved : 02/05/2019 14:51:18
[2019-02-05] MEDS: CARVEDILOL 3.125 MG TABLET. PO SCH (16:55)
[2019-02-05] MEDS ORDERED: ATORVASTATIN CALCIUM 20 MG TABLET PO SCH (21:00)
[2019-02-06 00:08] LABS: HEMOGLOBIN A1C 5.4 % (4.8-5.6)
[2019-02-06 03:29] VITALS: BP 140/83
[2019-02-06 04:02] LABS: BASO # 0.1 x10^3/uL (0.0-0.2); BASO % 1 % (0-3); EOS # 0.2 x10^3/uL (0.0-0.7); EOS % 3 % (0-3); HEMATOCRIT 44.5 % (36.0-47.0); HEMOGLOBIN 14.5 g/dL (12.0-15.5); LYMPH # 1.7 x10^3/uL (1.0-4.8); LYMPH % 21 % (24-48); MEAN CORPUSCULAR HEMOGLOBIN 28 pg (25-35); MEAN CORPUSCULAR HGB CONC 33 g/dL (31-37); MEAN CORPUSCULAR VOLUME 84 fL (79-100); MONO # 0.7 x10^3/uL (0.0-1.1); MONO % 8 % (0-9); NEUT # 5.5 x10^3/uL (1.8-7.7); NEUT % 67 % (31-73); PLATELET COUNT 206 x10^3/uL (140-400); RED BLOOD COUNT 5.27 x10^6/uL (3.50-5.40); RED CELL DISTRIBUTION WIDTH 13.8 % (11.5-14.5); WHITE BLOOD COUNT 8.2 x10^3/uL (4.0-11.0)
[2019-02-06 04:17] LABS: CALCIUM 8.6 mg/dL (8.5-10.1); CREATININE 0.9 mg/dL (0.6-1.0); GFR 70.1; POTASSIUM 4.2 mmol/L (3.5-5.1)
[2019-02-06 07:00] VITALS: BP 145/79
[2019-02-06] MEDS: CARVEDILOL 3.125 MG TABLET. PO SCH ×2 (08:50→17:26)
[2019-02-06] MEDS ORDERED: LISINOPRIL 5 MG TABLET. PO SCH (09:00)
[2019-02-06 11:30] VITALS: BP 140/74
[2019-02-06] MEDS ORDERED: ATOR20TA58 PO (12:45)
[2019-02-06] MEDS ORDERED: CARV3.1210 PO (12:45)
[2019-02-06] MEDS ORDERED: LISI-338 PO (12:45)
--- NOTE | 2019-02-06 12:47 | PDOC ---
PROGRESS NOTES Chief Complaint Chief Complaint A/P: NSTEMI - ACS symptoms, likely demand ischemia with recent amphetamine use and off her BB and VERITO therapy. Will reinitiate medications HTN urgency - restarted meds HLD - needs statin H/o gestational DM - previously documented, A1c 5.4, this may have been gestational DM as she claims to have had 28 pregnancies with 7 living children Cardiomyopathy - EF 45% previously - peripartum also methamphetamine induced, apparently also has family history of CHF Methamphetamine abuse - a few days ago Anxiety with Depression - self treating with amphetamines. Depressed currently about her only friend dying in ICU 02/05/19 Gestational CVA - per history. No residual sx Systolic CHF - EF 40-45% - needs VERITO, BB, statin, ASA. History of Present Illness History of Present Illness Ms Greer is a 38 year old female w/ PMHx chronic CHF, peripartum cardiomyopathy, Anxiety, Asthma, Bipolar, Depression, Diabetes-Type II, Hypertension, gestational CVA, methamphetamine abuse who presented to ER by EMS for evaluation of left substernal chest pain radiating through to her back that been going for 2 weeks. She denies any cough fever, recent sick contacts. On ROS with nursing overnight she admits to using methamphetamine 2.5 weeks ago. She is upset about her friend who is in ICU at our hospital currently. Patient is supposed to be on carvedilol, she ran out of her medication for several months (over a year). 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 She denies any history of smoking. Patient had no history of blood clot disorder, no recent travel or operation. Patient described the pain as aching, squeezing in nature. BNP 1830, Trop 0.747. Glucose 110. Enlarged heart on CXR. EKG - sinus rhythm, heart rate of 72 beats per minutes, no STEMI. Echo on 02/05 showed The left ventricular systolic function is mildly diminished. The Ejection Fraction is 45%. There is moderate concentric left ventricular hypertrophy. Tissue Doppler imaging reveals moderate left ventricular diastolic dysfunction. Trace mitral regurgitation. Trace tricuspid regurgitation with an estimated PAP of 26 mmHg. There is no evidence of significant pericardial effusion. She underwent cardiac catheterization with no occlusive lesions found. She is feeling better today. BP better controlled, no BP or SOB. Wants to go home to see her kids. Vitals Vitals Vital Signs Date Time Temp Pulse Resp B/P (MAP) Pulse Ox O2 Delivery O2 Flow Rate FiO2 02/06/19 08:51 69 145/79 02/06/19 07:00 98.3 16 98 Room Air 98.3 02/05/19 14:58 2.0 Physical Exam General: Alert, Oriented X3, Cooperative, No acute distress Heart: Regular rate (SR), Normal S1, Normal S2, Other (3/6 systolic murmur to LLS border) Abdomen: Normal bowel sounds, Soft, No tenderness, No hepatosplenomegaly, No masses Extremities: No clubbing, No cyanosis, No edema, Normal pulses, No tenderness/swelling Skin: No rashes, No breakdown, No significant lesion Labs LABS Laboratory Tests Test 02/06/19 03:30 White Blood Count 8.2 x10^3/uL (4.0-11.0) Red Blood Count 5.27 x10^6/uL (3.50-5.40) Hemoglobin 14.5 g/dL (12.0-15.5) Hematocrit 44.5 % (36.0-47.0) Mean Corpuscular Volume 84 fL (79-100) Mean Corpuscular Hemoglobin 28 pg (25-35) Mean Corpuscular Hemoglobin Concent 33 g/dL (31-37) Red Cell Distribution Width 13.8 % (11.5-14.5) Platelet Count 206 x10^3/uL (140-400) Neutrophils (%) (Auto) 67 % (31-73) Lymphocytes (%) (Auto) 21 % (24-48) Monocytes (%) (Auto) 8 % (0-9) Eosinophils (%) (Auto) 3 % (0-3) Basophils (%) (Auto) 1 % (0-3) Neutrophils # (Auto) 5.5 x10^3/uL (1.8-7.7) Lymphocytes # (Auto) 1.7 x10^3/uL (1.0-4.8) Monocytes # (Auto) 0.7 x10^3/uL (0.0-1.1) Eosinophils # (Auto) 0.2 x10^3/uL (0.0-0.7) Basophils # (Auto) 0.1 x10^3/uL (0.0-0.2) Sodium Level 138 mmol/L (136-145) Potassium Level 4.2 mmol/L (3.5-5.1) Chloride Level 105 mmol/L (98-107) Carbon Dioxide Level 25 mmol/L (21-32) Anion Gap 8 (6-14) Blood Urea Nitrogen 17 mg/dL (7-20) Creatinine 0.9 mg/dL (0.6-1.0) Estimated GFR (Cockcroft-Gault) 70.1 Glucose Level 100 mg/dL (70-99) Calcium Level 8.6 mg/dL (8.5-10.1) Assessment and Plan Assessmemt and Plan Problems Medical Problems: (1) Chest pain Status: Acute (2) Hypertension Status: Acute (3) NSTEMI (non-ST elevated myocardial infarction) Status: Acute Comment Review of Relevant I have reviewed the following items alonso (where applicable) has been applied. Labs Laboratory Tests Test 02/04/19 18:37 02/05/19 00:02 02/05/19 01:15 02/05/19 06:15 White Blood Count 8.2 x10^3/uL (4.0-11.0) Red Blood Count 5.18 x10^6/uL (3.50-5.40) Hemoglobin 14.2 g/dL (12.0-15.5) Hematocrit 43.3 % (36.0-47.0) Mean Corpuscular Volume 84 fL (79-100) Mean Corpuscular Hemoglobin 27 pg (25-35) Mean Corpuscular Hemoglobin Concent 33 g/dL (31-37) Red Cell Distribution Width 13.7 % (11.5-14.5) Platelet Count 215 x10^3/uL (140-400) Neutrophils (%) (Auto) 62 % (31-73) Lymphocytes (%) (Auto) 27 % (24-48) Monocytes (%) (Auto) 7 % (0-9) Eosinophils (%) (Auto) 3 % (0-3) Basophils (%) (Auto) 1 % (0-3) Neutrophils # (Auto) 5.0 x10^3/uL (1.8-7.7) Lymphocytes # (Auto) 2.2 x10^3/uL (1.0-4.8) Monocytes # (Auto) 0.6 x10^3/uL (0.0-1.1) Eosinophils # (Auto) 0.2 x10^3/uL (0.0-0.7) Basophils # (Auto) 0.1 x10^3/uL (0.0-0.2) Prothrombin Time 12.5 SEC (11.7-14.0) Prothromb Time International Ratio 1.0 (0.8-1.1) Activated Partial Thromboplast Time 26 SEC (24-38) Sodium Level 142 mmol/L (136-145) 139 mmol/L (136-145) Potassium Level 3.9 mmol/L (3.5-5.1) 4.1 mmol/L (3.5-5.1) Chloride Level 105 mmol/L (98-107) 105 mmol/L (98-107) Carbon Dioxide Level 30 mmol/L (21-32) 27 mmol/L (21-32) Anion Gap 7 (6-14) 7 (6-14) Blood Urea Nitrogen 15 mg/dL (7-20) 15 mg/dL (7-20) Creatinine 1.0 mg/dL (0.6-1.0) 0.9 mg/dL (0.6-1.0) Estimated GFR (Cockcroft-Gault) 62.1 70.1 BUN/Creatinine Ratio 15 (6-20) Glucose Level 110 mg/dL (70-99) 97 mg/dL (70-99) Hemoglobin A1c 5.4 % (4.8-5.6) Calcium Level 8.8 mg/dL (8.5-10.1) 8.6 mg/dL (8.5-10.1) Magnesium Level 1.9 mg/dL (1.8-2.4) Total Bilirubin 0.3 mg/dL (0.2-1.0) Aspartate Amino Transf (AST/SGOT) 18 U/L (15-37) Alanine Aminotransferase (ALT/SGPT) 20 U/L (14-59) Alkaline Phosphatase 77 U/L (46-116) Troponin I Quantitative 0.747 ng/mL (0.000-0.055) 0.712 ng/mL (0.000-0.055) 0.789 ng/mL (0.000-0.055) KH-Gph-X-Type Natriuretic Peptide 1830 pg/mL (0-124) Total Protein 6.6 g/dL (6.4-8.2) Albumin 3.1 g/dL (3.4-5.0) Albumin/Globulin Ratio 0.9 (1.0-1.7) Lipase 150 U/L (73-393) Thyroid Stimulating Hormone (TSH) 1.028 uIU/mL (0.358-3.74) Urine Test Negative (NEG) Urine Opiates Screen Neg (NEG) Urine Methadone Screen Neg (NEG) Urine Barbiturates Neg (NEG) Urine Phencyclidine Screen Neg (NEG) Urine Amphetamine/Methamphetamine Neg (NEG) Urine Benzodiazepines Screen Neg (NEG) Urine Cocaine Screen Neg (NEG) Urine Cannabinoids Screen Neg (NEG) Urine Ethyl Alcohol Neg (NEG) Triglycerides Level 165 mg/dL (0-150) Cholesterol Level 189 mg/dL (0-200) LDL Cholesterol, Calculated 115 mg/dL (0-100) VLDL Cholesterol, Calculated 33 mg/dL (0-40) Non-HDL Cholesterol Calculated 148 mg/dL (0-129) HDL Cholesterol 41 mg/dL (40-60) Cholesterol/HDL Ratio 4.6 Test 02/06/19 03:30 White Blood Count 8.2 x10^3/uL (4.0-11.0) Red Blood Count 5.27 x10^6/uL (3.50-5.40) Hemoglobin 14.5 g/dL (12.0-15.5) Hematocrit 44.5 % (36.0-47.0) Mean Corpuscular Volume 84 fL (79-100) Mean Corpuscular Hemoglobin 28 pg (25-35) Mean Corpuscular Hemoglobin Concent 33 g/dL (31-37) Red Cell Distribution Width 13.8 % (11.5-14.5) Platelet Count 206 x10^3/uL (140-400) Neutrophils (%) (Auto) 67 % (31-73) Lymphocytes (%) (Auto) 21 % (24-48) Monocytes (%) (Auto) 8 % (0-9) Eosinophils (%) (Auto) 3 % (0-3) Basophils (%) (Auto) 1 % (0-3) Neutrophils # (Auto) 5.5 x10^3/uL (1.8-7.7) Lymphocytes # (Auto) 1.7 x10^3/uL (1.0-4.8) Monocytes # (Auto) 0.7 x10^3/uL (0.0-1.1) Eosinophils # (Auto) 0.2 x10^3/uL (0.0-0.7) Basophils # (Auto) 0.1 x10^3/uL (0.0-0.2) Sodium Level 138 mmol/L (136-145) Potassium Level 4.2 mmol/L (3.5-5.1) Chloride Level 105 mmol/L (98-107) Carbon Dioxide Level 25 mmol/L (21-32) Anion Gap 8 (6-14) Blood Urea Nitrogen 17 mg/dL (7-20) Creatinine 0.9 mg/dL (0.6-1.0) Estimated GFR (Cockcroft-Gault) 70.1 Glucose Level 100 mg/dL (70-99) Calcium Level 8.6 mg/dL (8.5-10.1) Laboratory Tests Test 02/06/19 03:30 White Blood Count 8.2 x10^3/uL (4.0-11.0) Red Blood Count 5.27 x10^6/uL (3.50-5.40) Hemoglobin 14.5 g/dL (12.0-15.5) Hematocrit 44.5 % (36.0-47.0) Mean Corpuscular Volume 84 fL (79-100) Mean Corpuscular Hemoglobin 28 pg (25-35) Mean Corpuscular Hemoglobin Concent 33 g/dL (31-37) Red Cell Distribution Width 13.8 % (11.5-14.5) Platelet Count 206 x10^3/uL (140-400) Neutrophils (%) (Auto) 67 % (31-73) Lymphocytes (%) (Auto) 21 % (24-48) Monocytes (%) (Auto) 8 % (0-9) Eosinophils (%) (Auto) 3 % (0-3) Basophils (%) (Auto) 1 % (0-3) Neutrophils # (Auto) 5.5 x10^3/uL (1.8-7.7) Lymphocytes # (Auto) 1.7 x10^3/uL (1.0-4.8) Monocytes # (Auto) 0.7 x10^3/uL (0.0-1.1) Eosinophils # (Auto) 0.2 x10^3/uL (0.0-0.7) Basophils # (Auto) 0.1 x10^3/uL (0.0-0.2) Sodium Level 138 mmol/L (136-145) Potassium Level 4.2 mmol/L (3.5-5.1) Chloride Level 105 mmol/L (98-107) Carbon Dioxide Level 25 mmol/L (21-32) Anion Gap 8 (6-14) Blood Urea Nitrogen 17 mg/dL (7-20) Creatinine 0.9 mg/dL (0.6-1.0) Estimated GFR (Cockcroft-Gault) 70.1 Glucose Level 100 mg/dL (70-99) Calcium Level 8.6 mg/dL (8.5-10.1) Medications Current Medications Aspirin (Children'S Aspirin) 324 mg 1X ONCE PO ; Start 02/04/19 at 19:00; Stop 02/04/19 at 19:01; Status DC Metoprolol Tartrate (Lopressor Vial) 5 mg 1X ONCE IVP Last administered on 02/04/19at 20:15; Start 02/04/19 at 19:30; Stop 02/04/19 at 19:31; Status DC Nitroglycerin (Nitrostat) 0.4 mg PRN Q5MIN PRN SL CHEST PAIN; Start 02/04/19 at 19:30; Stop 02/05/19 at 14:47; Status DC Enoxaparin Sodium (Lovenox 120mg Syringe) 110 mg 1X ONCE SQ Last administered on 02/04/19at 20:00; Start 02/04/19 at 20:00; Stop 02/04/19 at 20:01; Status DC Influenza Virus Vaccine Quadrival (Afluria Quad 2019-20 (3yr Up) Syringe) 0.5 ml ONCE ONCE VAX IM ; Start 02/05/19 at 09:00; Stop 02/05/19 at 09:01; Status DC Albuterol Sulfate (Ventolin Neb Soln) 2.5 mg PRN Q2HRS PRN INH dyspnea; Start 02/04/19 at 22:45 Furosemide (Lasix) 40 mg [id number] IVP ; Start 02/04/19 at 23:00; Stop 02/05/19 at 00:10; Status DC Metoprolol Tartrate (Lopressor Vial) 5 mg PRN Q6HRS PRN IVP HYPERTENSION; Start 02/04/19 at 22:45 Lisinopril (Prinivil) 10 mg DAILY PO ; Start 02/04/19 at 23:00; Stop 02/05/19 at 00:10; Status DC Furosemide (Lasix) 40 mg BID92 IVP ; Start 02/05/19 at 09:00; Stop 02/05/19 at 09:34; Status DC Lisinopril (Prinivil) 10 mg DAILY PO Last administered on 02/05/19at 10:27; Start 02/05/19 at 09:00; Stop 02/05/19 at 13:04; Status DC Lisinopril (Prinivil) 5 mg DAILY PO Last administered on 02/06/19at 08:51; Start 02/06/19 at 09:00 Carvedilol (Coreg) 3.125 mg BIDWMEALS PO Last administered on 02/06/19at 08:50; Start 02/05/19 at 17:00 Atorvastatin Calcium (Lipitor) 20 mg QHS PO Last administered on 02/05/19at 20:24; Start 02/05/19 at 21:00 Lidocaine HCl (Xylocaine-Mpf 1% 2ml Vial) 2 ml STK-MED ONCE .ROUTE ; Start 02/05/19 at 13:21; Stop 02/05/19 at 13:22; Status DC Iohexol (Omnipaque 300 Mg/ml) 100 ml STK-MED ONCE .ROUTE ; Start 02/05/19 at 13:21; Stop 02/05/19 at 13:22; Status DC Heparin Sodium/ Sodium Chloride 500 ml @ As Directed STK-MED ONCE .ROUTE ; Start 02/05/19 at 13:21; Stop 02/05/19 at 13:22; Status DC Midazolam HCl (Versed) 5 mg STK-MED ONCE .ROUTE ; Start 02/05/19 at 14:04; Stop 02/05/19 at 14:04; Status DC Heparin Sodium (Porcine) (Heparin Sodium) 10,000 unit STK-MED ONCE .ROUTE ; Start 02/05/19 at 14:04; Stop 02/05/19 at 14:04; Status DC Verapamil HCl (Verapamil) 5 mg STK-MED ONCE .ROUTE ; Start 02/05/19 at 14:04; Stop 02/05/19 at 14:04; Status DC Nitroglycerin (Nitroglycerin) 200 mcg STK-MED ONCE .ROUTE ; Start 02/05/19 at 14:04; Stop 02/05/19 at 14:04; Status DC Diphenhydramine HCl (Benadryl) 50 mg STK-MED ONCE .ROUTE ; Start 02/05/19 at 14:20; Stop 02/05/19 at 14:20; Status DC Nitroglycerin (Nitroglycerin) 200 mcg 1X ONCE IART Last administered on 02/05/19at 14:55; Start 02/05/19 at 14:45; Stop 02/05/19 at 14:46; Status DC Verapamil HCl (Verapamil) 2.5 mg 1X ONCE IART Last administered on 02/05/19at 14:56; Start 02/05/19 at 14:45; Stop 02/05/19 at 14:46; Status DC Heparin Sodium (Porcine) (Heparin Sodium) 2,500 unit 1X ONCE IART Last administered on 02/05/19at 14:56; Start 02/05/19 at 14:45; Stop 02/05/19 at 14:46; Status DC Heparin Sodium/ Sodium Chloride (HEPARIN for ARTERIAL LINE FLUSH) 1,000 unit 1X ONCE IART Last administered on 02/05/19at 14:54; Start 02/05/19 at 14:45; Stop 02/05/19 at 14:46; Status DC Midazolam HCl (Versed) 5 mg 1X ONCE IV Last administered on 02/05/19at 14:57; Start 02/05/19 at 14:45; Stop 02/05/19 at 14:46; Status DC Iohexol (Omnipaque 300 Mg/ml) 100 ml 1X ONCE IART Last administered on 02/05/19at 14:56; Start 02/05/19 at 14:45; Stop 02/05/19 at 14:46; Status DC Lidocaine HCl (Xylocaine-Mpf 1% 2ml Vial) 2 ml 1X ONCE INJ Last administered on 02/05/19at 14:55; Start 02/05/19 at 14:45; Stop 02/05/19 at 14:46; Status DC Diphenhydramine HCl (Benadryl) 25 mg 1X ONCE IVP Last administered on 02/05/19at 14:55; Start 02/05/19 at 14:45; Stop 02/05/19 at 14:46; Status DC Info (CONTRAST GIVEN -- Rx MONITORING) 1 each PRN DAILY PRN MC SEE COMMENTS; Start 02/05/19 at 14:45; Stop 02/07/19 at 14:44 Nitroglycerin (Nitrostat) 0.4 mg PRN Q5MIN PRN SL CHEST PAIN; Start 02/05/19 at 14:45 Active Scripts Active Reported Albuterol Sulfate 2.5 Mg/3 Ml Vial.neb 2.5 Mg IH Vitals/I & O Vital Sign - Last 24 Hours 02/05/19 02/05/19 02/05/19 02/05/19 14:56 14:58 15:09 15:22 Pulse 75 75 72 Resp 16 16 B/P (MAP) 175/105 142/79 (100) Pulse Ox 96 97 97 O2 Delivery Nasal Cannula Room Air O2 Flow Rate 2.0 02/05/19 02/05/19 02/05/19 02/05/19 15:37 15:52 16:22 16:30 Pulse 70 68 62 66 Pulse Ox 96 98 97 97 02/05/19 02/05/19 02/05/19 02/05/19 16:52 16:55 17:52 18:52 Pulse 69 72 66 70 B/P (MAP) 158/96 Pulse Ox 96 99 94 02/05/19 02/05/19 02/06/19 02/06/19 19:07 22:00 03:29 07:00 Temp 98.8 98.5 98.1 98.3 98.8 98.5 98.1 98.3 Pulse 68 68 74 69 Resp 16 16 16 16 B/P (MAP) 133/72 (92) 138/74 (95) 140/83 (102) 145/79 (101) Pulse Ox 96 93 95 98 O2 Delivery Room Air Room Air Room Air Room Air 02/06/19 02/06/19 08:50 08:51 Pulse 69 69 B/P (MAP) 145/79 145/79 Intake and Output 02/05/19 02/05/19 02/06/19 15:00 23:00 07:00 Intake Total 0 ml 700 ml Output Total 800 ml 400 ml Balance 0 ml -800 ml 300 ml LILLIAM MCINTYRE MD Feb 06, 2019 12:47
--- NOTE | 2019-02-06 12:49 | PDOC3 ---
Discharge Summary Visit Information Date of Admission: Feb 04, 2019 Date of Discharge: Feb 06, 2019 Admitting Diagnosis: Chest pain Final Diagnosis Problems Medical Problems: (1) Chest pain Status: Acute (2) Hypertension Status: Acute (3) NSTEMI (non-ST elevated myocardial infarction) Status: Acute Brief Hospital Course Allergies Allergies Coded Allergies Type Severity Reaction Last Updated Verified morphine Allergy Intermediate HIVES, ABD CRAMPS 06/30/13 Yes ondansetron HCl Allergy Mild ABD CRAMPS 06/30/13 Yes latex Adverse Reaction Intermediate Hives 02/04/19 Yes Vital Signs Vital Signs Date Time Temp Pulse Resp B/P (MAP) Pulse Ox O2 Delivery O2 Flow Rate FiO2 02/06/19 08:51 69 145/79 02/06/19 07:00 98.3 16 98 Room Air 98.3 02/05/19 14:58 2.0 Lab Results Laboratory Tests Test 02/04/19 18:37 02/05/19 00:02 02/05/19 01:15 02/05/19 06:15 White Blood Count 8.2 x10^3/uL (4.0-11.0) Red Blood Count 5.18 x10^6/uL (3.50-5.40) Hemoglobin 14.2 g/dL (12.0-15.5) Hematocrit 43.3 % (36.0-47.0) Mean Corpuscular Volume 84 fL (79-100) Mean Corpuscular Hemoglobin 27 pg (25-35) Mean Corpuscular Hemoglobin Concent 33 g/dL (31-37) Red Cell Distribution Width 13.7 % (11.5-14.5) Platelet Count 215 x10^3/uL (140-400) Neutrophils (%) (Auto) 62 % (31-73) Lymphocytes (%) (Auto) 27 % (24-48) Monocytes (%) (Auto) 7 % (0-9) Eosinophils (%) (Auto) 3 % (0-3) Basophils (%) (Auto) 1 % (0-3) Neutrophils # (Auto) 5.0 x10^3/uL (1.8-7.7) Lymphocytes # (Auto) 2.2 x10^3/uL (1.0-4.8) Monocytes # (Auto) 0.6 x10^3/uL (0.0-1.1) Eosinophils # (Auto) 0.2 x10^3/uL (0.0-0.7) Basophils # (Auto) 0.1 x10^3/uL (0.0-0.2) Prothrombin Time 12.5 SEC (11.7-14.0) Prothromb Time International Ratio 1.0 (0.8-1.1) Activated Partial Thromboplast Time 26 SEC (24-38) Sodium Level 142 mmol/L (136-145) 139 mmol/L (136-145) Potassium Level 3.9 mmol/L (3.5-5.1) 4.1 mmol/L (3.5-5.1) Chloride Level 105 mmol/L (98-107) 105 mmol/L (98-107) Carbon Dioxide Level 30 mmol/L (21-32) 27 mmol/L (21-32) Anion Gap 7 (6-14) 7 (6-14) Blood Urea Nitrogen 15 mg/dL (7-20) 15 mg/dL (7-20) Creatinine 1.0 mg/dL (0.6-1.0) 0.9 mg/dL (0.6-1.0) Estimated GFR (Cockcroft-Gault) 62.1 70.1 BUN/Creatinine Ratio 15 (6-20) Glucose Level 110 mg/dL (70-99) 97 mg/dL (70-99) Hemoglobin A1c 5.4 % (4.8-5.6) Calcium Level 8.8 mg/dL (8.5-10.1) 8.6 mg/dL (8.5-10.1) Magnesium Level 1.9 mg/dL (1.8-2.4) Total Bilirubin 0.3 mg/dL (0.2-1.0) Aspartate Amino Transf (AST/SGOT) 18 U/L (15-37) Alanine Aminotransferase (ALT/SGPT) 20 U/L (14-59) Alkaline Phosphatase 77 U/L (46-116) Troponin I Quantitative 0.747 ng/mL (0.000-0.055) 0.712 ng/mL (0.000-0.055) 0.789 ng/mL (0.000-0.055) TQ-Ely-I-Type Natriuretic Peptide 1830 pg/mL (0-124) Total Protein 6.6 g/dL (6.4-8.2) Albumin 3.1 g/dL (3.4-5.0) Albumin/Globulin Ratio 0.9 (1.0-1.7) Lipase 150 U/L (73-393) Thyroid Stimulating Hormone (TSH) 1.028 uIU/mL (0.358-3.74) Urine Test Negative (NEG) Urine Opiates Screen Neg (NEG) Urine Methadone Screen Neg (NEG) Urine Barbiturates Neg (NEG) Urine Phencyclidine Screen Neg (NEG) Urine Amphetamine/Methamphetamine Neg (NEG) Urine Benzodiazepines Screen Neg (NEG) Urine Cocaine Screen Neg (NEG) Urine Cannabinoids Screen Neg (NEG) Urine Ethyl Alcohol Neg (NEG) Triglycerides Level 165 mg/dL (0-150) Cholesterol Level 189 mg/dL (0-200) LDL Cholesterol, Calculated 115 mg/dL (0-100) VLDL Cholesterol, Calculated 33 mg/dL (0-40) Non-HDL Cholesterol Calculated 148 mg/dL (0-129) HDL Cholesterol 41 mg/dL (40-60) Cholesterol/HDL Ratio 4.6 Test 02/06/19 03:30 White Blood Count 8.2 x10^3/uL (4.0-11.0) Red Blood Count 5.27 x10^6/uL (3.50-5.40) Hemoglobin 14.5 g/dL (12.0-15.5) Hematocrit 44.5 % (36.0-47.0) Mean Corpuscular Volume 84 fL (79-100) Mean Corpuscular Hemoglobin 28 pg (25-35) Mean Corpuscular Hemoglobin Concent 33 g/dL (31-37) Red Cell Distribution Width 13.8 % (11.5-14.5) Platelet Count 206 x10^3/uL (140-400) Neutrophils (%) (Auto) 67 % (31-73) Lymphocytes (%) (Auto) 21 % (24-48) Monocytes (%) (Auto) 8 % (0-9) Eosinophils (%) (Auto) 3 % (0-3) Basophils (%) (Auto) 1 % (0-3) Neutrophils # (Auto) 5.5 x10^3/uL (1.8-7.7) Lymphocytes # (Auto) 1.7 x10^3/uL (1.0-4.8) Monocytes # (Auto) 0.7 x10^3/uL (0.0-1.1) Eosinophils # (Auto) 0.2 x10^3/uL (0.0-0.7) Basophils # (Auto) 0.1 x10^3/uL (0.0-0.2) Sodium Level 138 mmol/L (136-145) Potassium Level 4.2 mmol/L (3.5-5.1) Chloride Level 105 mmol/L (98-107) Carbon Dioxide Level 25 mmol/L (21-32) Anion Gap 8 (6-14) Blood Urea Nitrogen 17 mg/dL (7-20) Creatinine 0.9 mg/dL (0.6-1.0) Estimated GFR (Cockcroft-Gault) 70.1 Glucose Level 100 mg/dL (70-99) Calcium Level 8.6 mg/dL (8.5-10.1) Laboratory Tests Test 02/06/19 03:30 White Blood Count 8.2 x10^3/uL (4.0-11.0) Red Blood Count 5.27 x10^6/uL (3.50-5.40) Hemoglobin 14.5 g/dL (12.0-15.5) Hematocrit 44.5 % (36.0-47.0) Mean Corpuscular Volume 84 fL (79-100) Mean Corpuscular Hemoglobin 28 pg (25-35) Mean Corpuscular Hemoglobin Concent 33 g/dL (31-37) Red Cell Distribution Width 13.8 % (11.5-14.5) Platelet Count 206 x10^3/uL (140-400) Neutrophils (%) (Auto) 67 % (31-73) Lymphocytes (%) (Auto) 21 % (24-48) Monocytes (%) (Auto) 8 % (0-9) Eosinophils (%) (Auto) 3 % (0-3) Basophils (%) (Auto) 1 % (0-3) Neutrophils # (Auto) 5.5 x10^3/uL (1.8-7.7) Lymphocytes # (Auto) 1.7 x10^3/uL (1.0-4.8) Monocytes # (Auto) 0.7 x10^3/uL (0.0-1.1) Eosinophils # (Auto) 0.2 x10^3/uL (0.0-0.7) Basophils # (Auto) 0.1 x10^3/uL (0.0-0.2) Sodium Level 138 mmol/L (136-145) Potassium Level 4.2 mmol/L (3.5-5.1) Chloride Level 105 mmol/L (98-107) Carbon Dioxide Level 25 mmol/L (21-32) Anion Gap 8 (6-14) Blood Urea Nitrogen 17 mg/dL (7-20) Creatinine 0.9 mg/dL (0.6-1.0) Estimated GFR (Cockcroft-Gault) 70.1 Glucose Level 100 mg/dL (70-99) Calcium Level 8.6 mg/dL (8.5-10.1) Brief Hospital Course Ms Greer is a 38 year old female w/ PMHx chronic CHF, peripartum cardiomyopathy, Anxiety, Asthma, Bipolar, Depression, Diabetes-Type II, Hypertension, gestational CVA, methamphetamine abuse who presented to ER by EMS for evaluation of left substernal chest pain radiating through to her back that been going for 2 weeks. She denies any cough fever, recent sick contacts. On ROS with nursing overnight she admits to using methamphetamine 2.5 weeks ago. She is upset about her friend who is in ICU at our hospital currently. Patient is supposed to be on carvedilol, she ran out of her medication for several months (over a year). 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 She denies any history of smoking. Patient had no history of blood clot disorder, no recent travel or operation. Patient described the pain as aching, squeezing in nature. BNP 1830, Trop 0.747. Glucose 110. Enlarged heart on CXR. EKG - sinus rhythm, heart rate of 72 beats per minutes, no STEMI. Echo on 02/05 showed The left ventricular systolic function is mildly diminished. The Ejection Fraction is 45%. There is moderate concentric left ventricular hypertrophy. Tissue Doppler imaging reveals moderate left ventricular diastolic dysfunction. Trace mitral regurgitation. Trace tricuspid regurgitation with an estimated PAP of 26 mmHg. There is no evidence of significant pericardial effusion. She underwent cardiac catheterization with no occlusive lesions found. She is feeling better today. BP better controlled, no BP or SOB. Wants to go home to see her kids. A/P: NSTEMI - ACS symptoms, likely demand ischemia with recent amphetamine use and off her BB and VERITO therapy. Will reinitiate medications HTN urgency - restarted meds HLD - needs statin H/o gestational DM - previously documented, A1c 5.4, this may have been gestational DM as she claims to have had 28 pregnancies with 7 living children Cardiomyopathy - EF 45% previously - peripartum also methamphetamine induced, apparently also has family history of CHF Methamphetamine abuse - a few days ago Anxiety with Depression - self treating with amphetamines. Depressed currently about her only friend dying in ICU 02/05/19 Gestational CVA - per history. No residual sx Systolic CHF - EF 40-45% - needs VERITO, BB, statin, ASA. Greater than 30 minutes spent on d/c Discharge Information Condition at Discharge: Improved Follow Up: Weeks (1) Disposition/Orders: D/C to Home Scheduled Atorvastatin Calcium (Atorvastatin Calcium) 20 Mg Tablet, 20 MG PO QHS for CHF/HLD for 30 Days, #30 Ref 11 Prescribed by: LILLIAM MCINTYRE MD on 02/06/19 1245 Carvedilol (Carvedilol ) 3.125 Mg Tablet, 3.125 MG PO BIDWMEALS for CHF for 30 Days, #60 Ref 11 Prescribed by: LILLIAM MCINTYRE MD on 02/06/19 1245 Lisinopril (Lisinopril) 5 Mg Tablet, 5 MG PO DAILY for CHF for 30 Days, #30 Ref 3 Prescribed by: LILLIAM MCINTYRE MD on 02/06/19 1245 Miscellaneous Medications Albuterol Sulfate (Albuterol Sulfate Neb Soln) 2.5 Mg/3 Ml Vial.neb, 2.5 MG IH, (Reported) Entered as Reported by: CORBIN CAZARES on 07/22/132057 Last Action: Continued on 02/04/192236 by MD MIGUELINA CHAVIS CHRISTOPHER S MD Feb 06, 2019 12:49
[2019-02-06 15:00] VITALS: BP 145/95
[2019-02-06 17:26] VITALS: BP 145/95
== END 2019-02-06 19:00 | disposition home or self-care (01) | DRG 281 ==
LOC: ER 18:31 → 2 NORTH 19:50
PROVIDERS: ADMIT Internal Medicine; ATTEND Internal Medicine
DX: I21.4 Non-ST elevation (NSTEMI) myocardial infarction (principal); I42.9 Cardiomyopathy, unspecified; I50.20 Unspecified systolic (congestive) heart failure; E11.9 Type 2 diabetes mellitus without complications; E78.5 Hyperlipidemia, unspecified; F41.8 Other specified anxiety disorders; I15.8 Other secondary hypertension; I16.0 Hypertensive urgency; J45.909 Unspecified asthma, uncomplicated; Z82.49 Family history of ischemic heart disease and other diseases of the circulatory system; Z86.73 Personal history of transient ischemic attack (TIA), and cerebral infarction without residual deficits; Z90.49 Acquired absence of other specified parts of digestive tract; F32.9 Major depressive disorder, single episode, unspecified; F41.9 Anxiety disorder, unspecified; G43.909 Migraine, unspecified, not intractable, without status migrainosus; K21.9 Gastro-esophageal reflux disease without esophagitis; M19.90 Unspecified osteoarthritis, unspecified site
CPT/HCPCS: 36415; 71045; 80048; 80053; 80061; 80307; 81025; 83036; 83690; 83735; 83880; 84443; 84484; 85025; 85610; 85730; 90471; 90686; 93005; 93306; 93458; 99152; 99153; C1769; C1892; J1200; J1644; J1650; J2250; J3490; Q9967; G0378

== ENCOUNTER 2019-02-21 19:51 | Emergency (ER) | payer OTHER ==
[~2019-02-21] VITALS: Ht 165.1 cm; Wt 108.9 kg
[~2019-02-21 19:51] MED LIST changes: +ATOR20TA58 PO; +CARV3.1210 PO; +LISI-338 PO
--- NOTE | 2019-02-21 20:06 | PHYS DOC ---
Past Medical History Past Medical History: Anxiety, Arthritis, Asthma, Bipolar, Depression, Diabetes-Type II, Hypertension, Kidney Infection, Stroke, UTI, Other Additional Past Medical Histor: DDD, STRESS FX LOWER BACK, GESTATIONAL STROKE Past Surgical History: Appendectomy, Cholecystectomy Additional Past Surgical Histo: D&C Alcohol Use: None Drug Use: None Adult General Chief Complaint Chief Complaint: CHEST WALL PAIN HPI HPI 38-year-old female who presents to the emergency department with complaints of chest pain. Patient was discharged on February 04, at that time she had a catheter was performed of which was unremarkable. Likely secondary to demand ischemia. Patient denies any nausea, vomiting, diaphoresis. She does have intermittent shortness of breath. She has underlying history of anxiety, asthma, bipolar, hypertension. Nothing makes her symptoms worse, nothing makes her symptoms better. Cardiology cath report reviewed Review of Systems Review of Systems Constitutional: Denies fever or chills [] Eyes: Denies change in visual acuity, redness, or eye pain [] HENT: Denies nasal congestion or sore throat [] Respiratory: Denies cough or shortness of breath [] Cardiovascular: No additional information not addressed in HPI [] GI: Denies abdominal pain, nausea, vomiting, bloody stools or diarrhea [] : Denies dysuria or hematuria [] Musculoskeletal: Denies back pain or joint pain [] Integument: Denies rash or skin lesions [] Neurologic: Denies headache, focal weakness or sensory changes [] Endocrine: Denies polyuria or polydipsia [] All other systems were reviewed and found to be within normal limits, except as documented in this note. Current Medications Current Medications Current Medications Medications (Trade) Dose Ordered Sig/Alyse Start Time Stop Time Status Last Admin Dose Admin Aspirin (Children'S Aspirin) 324 mg 1X ONCE 02/21/19 20:30 02/21/19 20:32 DC 02/21/19 20:41 324 MG Nitroglycerin (Nitrostat) 0.4 mg PRN Q5MIN PRN 02/21/19 20:30 02/22/19 20:29 Allergies Allergies Allergies Coded Allergies Type Severity Reaction Last Updated Verified morphine Allergy Intermediate HIVES, ABD CRAMPS 5/7/14 Yes ondansetron HCl Allergy Mild ABD CRAMPS 5/7/14 Yes latex Adverse Reaction Intermediate Hives 02/04/19 Yes Physical Exam Physical Exam Constitutional: Well developed, well nourished, no acute distress, non-toxic appearance. [] HENT: Normocephalic, atraumatic, bilateral external ears normal, oropharynx moist, no oral exudates, nose normal. [] Eyes: PERRLA, EOMI, conjunctiva normal, no discharge. [] Neck: Normal range of motion, no tenderness, supple, no stridor. [] Cardiovascular:Heart rate regular rhythm, no murmur [] Lungs & Thorax: Bilateral breath sounds clear to auscultation [] Abdomen: Bowel sounds normal, soft, no tenderness, no masses, no pulsatile masses. [] Skin: Warm, dry, no erythema, no rash. [] Back: No tenderness, no CVA tenderness. [] Extremities: No tenderness, no cyanosis, no clubbing, ROM intact, no edema. [] Neurologic: Alert and oriented X 3, normal motor function, normal sensory function, no focal deficits noted. [] Psychologic: Affect normal, judgement normal, mood normal. [] Current Patient Data Vital Signs Vital Signs Date Time Temp Pulse Resp B/P (MAP) Pulse Ox O2 Delivery O2 Flow Rate FiO2 02/21/19 19:55 98.3 69 17 158/90 (112) 99 Room Air 98.3 Lab Values Laboratory Tests Test 02/21/19 20:06 02/21/19 23:10 White Blood Count 10.1 x10^3/uL (4.0-11.0) Red Blood Count 5.40 x10^6/uL (3.50-5.40) Hemoglobin 15.0 g/dL (12.0-15.5) Hematocrit 45.5 % (36.0-47.0) Mean Corpuscular Volume 84 fL (79-100) Mean Corpuscular Hemoglobin 28 pg (25-35) Mean Corpuscular Hemoglobin Concent 33 g/dL (31-37) Red Cell Distribution Width 13.7 % (11.5-14.5) Platelet Count 285 x10^3/uL (140-400) Neutrophils (%) (Auto) 59 % (31-73) Lymphocytes (%) (Auto) 28 % (24-48) Monocytes (%) (Auto) 7 % (0-9) Eosinophils (%) (Auto) 5 % (0-3) H Basophils (%) (Auto) 1 % (0-3) Neutrophils # (Auto) 6.0 x10^3/uL (1.8-7.7) Lymphocytes # (Auto) 2.9 x10^3/uL (1.0-4.8) Monocytes # (Auto) 0.7 x10^3/uL (0.0-1.1) Eosinophils # (Auto) 0.5 x10^3/uL (0.0-0.7) Basophils # (Auto) 0.1 x10^3/uL (0.0-0.2) Sodium Level 144 mmol/L (136-145) Potassium Level 3.8 mmol/L (3.5-5.1) Chloride Level 105 mmol/L (98-107) Carbon Dioxide Level 29 mmol/L (21-32) Anion Gap 10 (6-14) Blood Urea Nitrogen 19 mg/dL (7-20) Creatinine 0.9 mg/dL (0.6-1.0) Estimated GFR (Cockcroft-Gault) 70.1 BUN/Creatinine Ratio 21 (6-20) H Glucose Level 102 mg/dL (70-99) H Calcium Level 9.2 mg/dL (8.5-10.1) Magnesium Level 1.9 mg/dL (1.8-2.4) Total Bilirubin 0.3 mg/dL (0.2-1.0) Aspartate Amino Transferase (AST) 22 U/L (15-37) Alanine Aminotransferase (ALT) 19 U/L (14-59) Alkaline Phosphatase 79 U/L (46-116) Troponin I Quantitative 0.743 ng/mL (0.000-0.055) 0.686 ng/mL (0.000-0.055) ZU-Nmm-E-Type Natriuretic Peptide 1085 pg/mL (0-124) H Total Protein 7.5 g/dL (6.4-8.2) Albumin 3.6 g/dL (3.4-5.0) Albumin/Globulin Ratio 0.9 (1.0-1.7) L Laboratory Tests 02/21/19 20:06 Laboratory Tests 02/21/19 20:06 EKG EKG [] Radiology/Procedures Radiology/Procedures [] Course & Med Decision Making Course & Med Decision Making Pertinent Labs and Imaging studies reviewed. (See chart for details) []38-year-old female who presents to the emergency department with complaints of chest pain. Patient was discharged on February 04, at that time she had a catheter was performed of which was unremarkable. Likely secondary to demand is chemia. Patient denies any nausea, vomiting, diaphoresis. She does have intermittent shortness of breath. She has underlying history of anxiety, asthma, bipolar, hypertension. Nothing makes her symptoms worse, nothing makes her symptoms better. Cardiology cath report reviewed Labs/Imaging reviewed EKG reviewed left axis deviation, heart rate 68, normal sinus rhythm, no evidence of ST elevation IN (1999) Troponin 0.743 however lower from her previous admission, this is likely trending down from Catheterization. The second troponin is 0.68, lower than initial troponin (trending down) [facility] - grease this is likely secondary to heart catheterization, agrees with second troponin ended trending down stable for discharge Discussed findings with patient at bedside Cardiology will follow up wtih patient in the AM Recommend dc home Return precautions provided Dragon Disclaimer Dragon Disclaimer This electronic medical record was generated, in whole or in part, using a voice recognition dictation system. Departure Departure Impression: Primary Impression: Chest pain Disposition: 01 HOME, SELF-CARE Condition: IMPROVED Referrals: MAYI HIGH APRN (PCP) Patient Instructions: Chest Pain (Nonspecific), [id number] Additional Instructions: Recommend follow up with PCP 3 - 5 days Return to the ER with worsening symptoms, intractable pain, fever, altered mental status Tylenol/Motrin as needed for pain Cardiology will follow up with you tomorrow Continue home medications as directed Problem Qualifiers Primary Impression: Chest pain Chest pain type: unspecified Qualified Codes: R07.9 - Chest pain, unspecified ALLEN VARGHESE MD Feb 21, 2019 20:06
[2019-02-21 20:27] LABS: BASO # 0.1 x10^3/uL (0.0-0.2); BASO % 1 % (0-3); EOS # 0.5 x10^3/uL (0.0-0.7); EOS % 5 % (0-3); HEMATOCRIT 45.5 % (36.0-47.0); LYMPH # 2.9 x10^3/uL (1.0-4.8); LYMPH % 28 % (24-48); MEAN CORPUSCULAR HEMOGLOBIN 28 pg (25-35); MEAN CORPUSCULAR HGB CONC 33 g/dL (31-37); MEAN CORPUSCULAR VOLUME 84 fL (79-100); MONO # 0.7 x10^3/uL (0.0-1.1); MONO % 7 % (0-9); NEUT % 59 % (31-73); PLATELET COUNT 285 x10^3/uL (140-400); RED CELL DISTRIBUTION WIDTH 13.7 % (11.5-14.5); WHITE BLOOD COUNT 10.1 x10^3/uL (4.0-11.0)
[2019-02-21] MEDS ORDERED: NITROGLYCERIN SUBLINGUAL 0.4 MG BOTTLE OF 25. SL PRN (20:30)
[2019-02-21] MEDS: ASPIRIN CHEWABLE 81 MG TABLET. PO ONE (20:41)
[2019-02-21 20:42] LABS: CALCIUM 9.2 mg/dL (8.5-10.1); CREATININE 0.9 mg/dL (0.6-1.0); GFR 70.1; POTASSIUM 3.8 mmol/L (3.5-5.1)
[2019-02-21 20:47] LABS: ALBUMIN 3.6 g/dL (3.4-5.0); ALBUMIN/GLOBULIN RATIO 0.9 (1.0-1.7); MAGNESIUM 1.9 mg/dL (1.8-2.4); TOTAL BILIRUBIN 0.3 mg/dL (0.2-1.0); TOTAL PROTEIN 7.5 g/dL (6.4-8.2)
--- NOTE | 2019-02-21 21:28 | RAD ---
Examination: PORTABLE CHEST 1V History: Pain Comparison/Correlation: 02/04/2019 frontal view of the chest Findings: Portable upright frontal view of the chest was obtained. Heart size is borderline but unchanged. No infiltrate or pleural effusion. No pneumothorax. Bony structures are unremarkable. Impression: No active disease. Electronically signed by: Idris Zavala MD (02/21/2019 9:25 PM) [facility]
[2019-02-21 23:30] VITALS: BP 119/72
--- NOTE | 2019-02-22 07:58 | EKG ---
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
== END 2019-02-21 23:50 | disposition home or self-care (01) ==
LOC: ER 19:51
DX: R07.9 Chest pain, unspecified (principal); F41.9 Anxiety disorder, unspecified; M19.90 Unspecified osteoarthritis, unspecified site; J45.909 Unspecified asthma, uncomplicated; F31.9 Bipolar disorder, unspecified; E11.9 Type 2 diabetes mellitus without complications; I10 Essential (primary) hypertension; Z87.440 Personal history of urinary (tract) infections; Z86.73 Personal history of transient ischemic attack (TIA), and cerebral infarction without residual deficits
CPT/HCPCS: 36415; 71045; 80053; 83735; 83880; 84484; 85025; 93005; 99285

== ENCOUNTER → 2019-02-25 | Outpatient (CLI) | payer OTHER ==
[2019-02-21 23:30] VITALS: BP 119/72
--- NOTE | 2019-02-25 15:08 | KCIC ---
EXAM: Right shoulder, 3 views. HISTORY: Pain. COMPARISON: None. FINDINGS: 3 views of the right shoulder obtained. There is no acute fracture, dislocation or subluxation. IMPRESSION: No acute osseous finding. Electronically signed by: Tran Shearer MD (02/25/2019 3:05 PM) [place] [id number]
== END | disposition home or self-care (01) ==
LOC: KCIC 14:08
PROVIDERS: ATTEND Nurse Practitioner Family
DX: M25.511 Pain in right shoulder (principal)
CPT/HCPCS: 73030

== ENCOUNTER → 2019-07-26 | Outpatient (CLI) | payer OTHER ==
--- NOTE | 2019-07-26 13:27 | RAD ---
Examination: 1. Soft tissue ultrasound left upper extremity nonvascular. 2. Thyroid ultrasound. INDICATION: Left posterior shoulder mass and right neck swelling. TECHNIQUE: Targeted ultrasound of the area of palpable concern posterior left shoulder was performed with grayscale and color Doppler imaging. Transverse and longitudinal images of the thyroid gland was also performed using grayscale and color Doppler imaging. FINDINGS: Left upper extremity nonvascular ultrasound: A parallel orientation and circumscribed oval 6.7 x 3.5 x 4.7 cm mass isoechoic to the subcutaneous fat is present directly underneath the skin. No corresponding circumscribed mass is evident in the right shoulder which was imaged for comparison purposes. Thyroid ultrasound: Right thyroid lobe measures 5.3 x 2.0 x 1.8 cm. At the midpole right thyroid gland is an oval parallel orientation mixed solid and cystic nodule measuring 1.2 x 0.7 x 1.0 cm (cc by AP by transverse) (TI-RADS 4). At the inferior pole right thyroid lobe is a mixed solid and cystic nodule with mild internal vascularity measuring 1.9 x 1.5 x 1.4 cm (TI-RADS 4) The thyroid isthmus measures 4 mm in thickness. At the right aspect of the isthmus is an 8.0 x 5.7 x 6.7 mm and demonstrates curvilinear echogenicity along its medial margin that could reflect internal calcifications (TI-RADS 4) IMPRESSION: 1. Mass in the posterior left shoulder sonographically features consistent with a lipoma. Recommend clinical follow-up with consideration of a surgical consult based on its clinical behavior. 2. Two nodules in the right thyroid lobe and one in the right aspect of the isthmus are all moderately suspicious for malignancy. Based on size criteria, the inferior pole right thyroid lobe nodule is recommended for an FNA given its size greater than 1.5 cm. The other nodules are recommended for follow-up in one year if biopsy is not pursued on them. Electronically signed by: Allan Amezquita MD (07/26/2019 1:25 PM) [id number]
== END | disposition home or self-care (01) ==
LOC: US 09:56
PROVIDERS: ATTEND Nurse Practitioner Family
DX: M25.412 Effusion, left shoulder (principal); D17.9 Benign lipomatous neoplasm, unspecified; E04.2 Nontoxic multinodular goiter
CPT/HCPCS: 76536; 76882

== ENCOUNTER 2019-12-25 16:09 | Emergency (ER) | payer OTHER ==
[~2019-12-25] VITALS: Ht 167.6 cm; Wt 86.0 kg
[2019-12-25 16:26] VITALS: BP 135/83
--- NOTE | 2019-12-25 17:10 | PHYS DOC ---
Past Medical History Past Medical History: Anxiety, Arthritis, Asthma, Bipolar, Depression, Di abetes-Type II, Hypertension, Kidney Infection, Stroke, UTI, Other Additional Past Medical Histor: DDD, STRESS FX LOWER BACK, GESTATIONAL STROKE, LARGE HEART Past Surgical History: Appendectomy, Cholecystectomy Additional Past Surgical Histo: D&C Smoking Status: Never Smoker Alcohol Use: None Drug Use: None General Adult EDM: Chief Complaint: ANKLE PROBLEM HPI: HPI: Patient is a 39 year old female who presents with complaints of swelling of the left ankle. Patient states at approximately 2100 last night she was walking through the parking lot with high heeled boots side and felt her ankle suddenly start swelling. Patient denies twisting her ankle or injuring her left ankle. Patient states she took her boot off but noticed her left ankle is quite swollen and painful at a 10/10 on a 1-10 pain scale. Patient denies ever injuring this ankle. Patient states that she does have a history of hypertension which she takes lisinopril, carvedilol, atorvastatin, and an occasional albuterol inhaler. Patient denies any recent fever or chills, any visual changes, any nasal congestion cough or shortness of breath. Patient denies chest pains, swelling of her extremities other than her right ankle. Patient denies abdominal pain, nausea, vomiting, diarrhea, or constipation. She denies problems urinating, denies STI concerns, denies vaginal discharge. Patient denies any pain in her back or in her joints other than her left ankle. Patient denies skin rashes, headaches, focal weaknesses, or sensory changes. Patient denies any swelling of her glands, depressions or anxieties, homicidal or suicidal ideation. Review of Systems: Review of Systems: Constitutional: Denies fever or chills. Eyes: Denies change in visual acuity. HENT: Denies nasal congestion or sore throat. Respiratory: Denies cough or shortness of breath. Cardiovascular: Denies chest pain or edema. GI: Denies abdominal pain, nausea, vomiting, bloody stools or diarrhea. : Denies dysuria. Musculoskeletal: Denies back pain, complains of swelling to her left ankle. Integument: Denies rash. Neurologic: Denies headache, focal weakness or sensory changes. Lymphatic: Denies swollen glands. Psychiatric: Denies depression or anxiety. Denies suicidal or homicidal ideation. Heart Score: Risk Factors: Risk Factors: DM, Current or recent (<one month) smoker, HTN, HLP, family history of CAD, obesity. Risk Scores: Score 0 - 3: 2.5% MACE over next 6 weeks - Discharge Home Score 4 - 6: 20.3% MACE over next 6 weeks - Admit for Clinical Observation Score 7 - 10: 72.7% MACE over next 6 weeks - Early Invasive Strategies Current Medications: Patient reports taking atorvastatin 20 mg daily, carvedilol 3.125 mg twice daily, lisinopril 5 mg daily, and albuterol inhaler as needed. Allergies: Allergies: Allergies Coded Allergies Type Severity Reaction Last Updated Verified morphine Allergy Intermediate HIVES, ABD CRAMPS 06/30/13 Yes ondansetron HCl Allergy Mild ABD CRAMPS 06/30/13 Yes latex Adverse Reaction Intermediate Hives 02/04/19 Yes Physical Exam: PE: Constitutional: Well developed, well nourished, no acute distress, non-toxic appearance. HENT: Normocephalic, atraumatic, bilateral external ears normal, oropharynx moist, no oral exudates, nose normal. Eyes: PERRLA, EOMI, conjunctiva normal, no discharge. Neck: Normal range of motion, no tenderness, supple, no stridor. Cardiovascular:Heart rate regular rhythm, no murmur Lungs & Thorax: Bilateral breath sounds clear to auscultation Abdomen: Bowel sounds normal, soft, no tenderness, no masses, no pulsatile masses. Skin: Warm, dry, no erythema, no rash. Back: No tenderness, no CVA tenderness. Extremities: No tenderness, no cyanosis, no clubbing, ROM intact, no edema. To all extremities except for patient's left ankle upon examination showed nonerythematous swelling to medial and lateral malleolus, talus regions, skin intact, no signs of infectious process, 2+ posterior tibial and dorsalis pedis pulses, cap refill less than 2 seconds, full AROM/PROM, however active range of motion and passive range of motion elicits pain of 4/10. Patient moves all toes without difficulty. No loss of sensation. Neurologic: Alert and oriented X 3, normal motor function, normal sensory function, no focal deficits noted. Psychologic: Affect normal, judgement normal, mood normal. Current Patient Data: Vital Signs: Vital Signs Date Time Temp Pulse Resp B/P (MAP) Pulse Ox O2 Delivery O2 Flow Rate FiO2 12/25/19 16:26 97.8 76 20 135/83 (100) 99 Room Air 97.8 EKG: EKG: [] Radiology/Procedures: Radiology/Procedures: STATUS: REG ER ORD. PHYSICIAN: INDERJIT COLVIN APRN REASON: R/O SOFT TISSUE F/B HEAL AREA, STEPPED IN NEEDLE AT HOME PROCEDURE: FOOT LEFT 3V PROCEDURE: FOOT LEFT 3V, ANKLE LEFT 3V STUDY DATE: 12/25/2019 CLINICAL INDICATION / HISTORY: Reason: R/O SOFT TISSUE F/B HEAL AREA, STEPPED IN NEEDLE AT HOME / Spl. Instructions: / History: . TECHNIQUE: AP, lateral and oblique views of the left foot. COMPARISON: None FINDINGS: No fracture or dislocation is identified. The bone density is normal. The joint space widths are maintained, and there are no erosions to suggest an inflammatory arthropathy. Small calcaneal spur. Soft tissues show 1.7 cm long thin sharp radiopaque foreign body on the plantar aspect of the foot projecting between the cuboid and third cuneiform bones. IMPRESSION: Radiopaque foreign body resembling a needle in the midfoot of the left foot between the cuboid and the third cuneiform bones. PROCEDURE: FOOT LEFT 3V, ANKLE LEFT 3V STUDY DATE: 12/25/2019 CLINICAL INDICATION / HISTORY: Reason: R/O SOFT TISSUE F/B HEAL AREA, STEPPED IN NEEDLE AT HOME / Spl. Instructions: / History: . TECHNIQUE: Left ankle 3 views. COMPARISON: None FINDINGS: The ankle mortise is approximated, and the talar dome is unremarkable. The joint space widths are maintained. No fracture or dislocation is identified. There is evidence of a small joint effusion. Mild soft tissue swelling around the ankle most conspicuously over the lateral malleolus is present. IMPRESSION: Left ankle sprain. No fracture or traumatic malalignment noted. Electronically signed by: Lui Amezquita MD (12/25/2019 6:15 PM) [facility] [place] and SIGNED BY: LUI AMEZQUITA MD DATE: 12/25/191814 Course & Med Decision Making: Course & Med Decision Making Pertinent Labs and Imaging studies reviewed. (See chart for details) 39-year-old female presented to the ER complaining of nontraumatic left ankle swelling reporting she was walking in high heel boots when she suddenly felt her ankle started to swell with increased pain. On initial examination and review of chief complaint patient states that she did not remember twisting falling or injuring her ankle. The patient states she is not and could not be related to a bilateral tubal ligation greater than 5 years ago. Imaging was ordered. However when radiology nurse was x-rayed patient's ankle, patient revealed that she had stepped on a needle approximately 3 years ago and thinks the needle is still in her foot. An x-ray of both the left ankle and the left foot were ordered. House radiologist read the x-rays as sprained left ankle, with a foreign body consistent with needle near talus and cuboid area plantar aspect. Reviewed findings with patient and need to consult orthopedic surgeon to review case with him. At this time the patient states that she cannot stay and needed to get home to take care of her children. Patient asked for pain medication stronger than the 60 mg Toradol IM that was given to her in the emergency department which brought her pain level from a 10/10 on a 1-10 pain scale down to a 4-5/10 pain. I urged patient to stay and reviewed with her findings of the x-ray and the reason that I needed to consult with an orthopedic surgeon. Patient elected to leave the emergency department AGAINST MEDICAL ADVICE, it is of my opinion that the patient is of sound mind alert and oriented x3 and is able to make her own informed medical decisions. Patient left the emergency department AGAINST MEDICAL ADVICE. Orthopedic surgeon Dr. Barraza was consulted and made aware of the patient's case and radiology studies. Orthopedic surgeon recommended p.o. NSAID anti-inflammatories stating he did not feel the foreign body was causing the swelling as evident by needle/foreign body position is several centimeters away from critical vessels throughout the foot. Orthopedic surgeon recommends that she follow-up in his office if problems persist. Patient was called on personal phone and reviewed orthopedic surgeons recommendations with patient, patient gave verbal understanding of these recommendations stating that she would follow-up in his office if symptoms persist. Patient was urged to return to the emergency department for continuation and completion of medical evaluation, patient stated she would return if problems persist. Ton Disclaimer: Ton Disclaimer: This electronic medical record was generated, in whole or in part, using a voice recognition dictation system. Departure Departure Impression: Primary Impression: Left against medical advice Disposition: 07 AMA/ELOPED/LWBS Condition: STABLE Referrals: MAYI HIGH APRN (PCP) INDERJIT COLVIN APRN Dec 25, 2019 17:10
[2019-12-25] MEDS ORDERED: KETOROLAC 60 MG/2 ML VIAL. IM ONE (17:30)
--- NOTE | 2019-12-25 18:19 | RAD ---
PROCEDURE: FOOT LEFT 3V, ANKLE LEFT 3V STUDY DATE: 12/25/2019 CLINICAL INDICATION / HISTORY: Reason: R/O SOFT TISSUE F/B HEAL AREA, STEPPED IN NEEDLE AT HOME / Spl. Instructions: / History: . TECHNIQUE: AP, lateral and oblique views of the left foot. COMPARISON: None FINDINGS: No fracture or dislocation is identified. The bone density is normal. The joint space widths are maintained, and there are no erosions to suggest an inflammatory arthropathy. Small calcaneal spur. Soft tissues show 1.7 cm long thin sharp radiopaque foreign body on the plantar aspect of the foot projecting between the cuboid and third cuneiform bones. IMPRESSION: Radiopaque foreign body resembling a needle in the midfoot of the left foot between the cuboid and the third cuneiform bones. PROCEDURE: FOOT LEFT 3V, ANKLE LEFT 3V STUDY DATE: 12/25/2019 CLINICAL INDICATION / HISTORY: Reason: R/O SOFT TISSUE F/B HEAL AREA, STEPPED IN NEEDLE AT HOME / Spl. Instructions: / History: . TECHNIQUE: Left ankle 3 views. COMPARISON: None FINDINGS: The ankle mortise is approximated, and the talar dome is unremarkable. The joint space widths are maintained. No fracture or dislocation is identified. There is evidence of a small joint effusion. Mild soft tissue swelling around the ankle most conspicuously over the lateral malleolus is present. IMPRESSION: Left ankle sprain. No fracture or traumatic malalignment noted. Electronically signed by: Allan Amezquita MD (12/25/2019 6:15 PM) [facility] [facility] [place]
== END 2019-12-25 18:51 | disposition left against medical advice (07) ==
LOC: ER 16:09
DX: R22.42 Localized swelling, mass and lump, left lower limb (principal); M25.572 Pain in left ankle and joints of left foot; J45.909 Unspecified asthma, uncomplicated; F31.9 Bipolar disorder, unspecified; E11.9 Type 2 diabetes mellitus without complications; I10 Essential (primary) hypertension; Z86.73 Personal history of transient ischemic attack (TIA), and cerebral infarction without residual deficits; Z88.5 Allergy status to narcotic agent; Z91.040 Latex allergy status
CPT/HCPCS: 73610; 73630; 96372; 99284; J1885

== ENCOUNTER → 2020-04-19 | Outpatient (CLI) | payer OTHER ==
[~2020-04-19] MED LIST changes: -LISI-338 PO; +LISI-517 PO
--- NOTE | 2020-04-19 17:09 | KCIC ---
EXAMINATION: XR KNEE 3 VIEWS CLINICAL HISTORY: BILATERAL KNEE PAIN. SHARP PAIN IN RIGHT KNEE, PAIN IN SWELLING IN LEFT KNEE TECHNIQUE: XR KNEE 3 VIEWS Number of Images/Views: 6 COMPARISON: None FINDINGS: RIGHT KNEE: Moderate medial and lateral compartment narrowing. Tricompartmental small marginal osteop hytes. No acute fracture. Small suprapatellar enthesophyte. Small calcified joint body in the medial compartment. No joint effusion. LEFT KNEE: Moderate to severe medial and mild to moderate lateral compartment narrowing. Tricompartme ntal small marginal osteophytes. No acute fracture. No significant joint effusion. IMPRESSION: Degenerative changes bilateral knees as described, greatest in the medial compartments. Electronically signed by: Chip Mathis DO (04/19/2020 5:06 PM) [id number]
== END ==
LOC: KCIC 15:15
PROVIDERS: ATTEND Nurse Practitioner Family
DX: M17.0 Bilateral primary osteoarthritis of knee (principal)
CPT/HCPCS: 73562

== ENCOUNTER → 2020-10-17 | Outpatient (CLI) | payer OTHER ==
--- NOTE | 2020-10-17 10:39 | KCIC ---
EXAM: Cervical spine, 5 views. HISTORY: Neuropathy. Pain. COMPARISON: None. FINDINGS: 5 views of cervical spine are obtained. There is slight reversal cervical lordosis. There i s no significant listhesis. There is minimal endplate remodeling primarily at C4-C5. There is minimal bilateral facet arthropathy. IMPRESSION: 1. Minimal degenerative change involving the cervical spine, described above. 2. No acute osseous finding. Electronically signed by: Tran Shearer MD (10/17/2020 10:37 AM) [id number]
== END ==
LOC: KCIC 09:17
PROVIDERS: ATTEND Nurse Practitioner Family
DX: M47.812 Spondylosis without myelopathy or radiculopathy, cervical region (principal); G56.90 Unspecified mononeuropathy of unspecified upper limb
CPT/HCPCS: 72040

== ENCOUNTER 2021-03-24 04:26 | Emergency (ER) | payer OTHER ==
[~2021-03-24] VITALS: Ht 165.1 cm; Wt 119.1 kg
[~2021-03-24 04:26] MED LIST changes: -LISI-517 PO; +LISI5TAB15 PO
--- NOTE | 2021-03-24 05:05 | PHYS DOC ---
Past Medical History Past Medical History: Anxiety, Arthritis, Asthma, Bipolar, Depression, Di abetes-Type II, Hypertension, Kidney Infection, Stroke, UTI, Other Additional Past Medical Histor: DDD, STRESS FX LOWER BACK, GESTATIONAL STROKE, LARGE HEART,NSTEMI (MARCIO LEÓN MD) Past Surgical History: Appendectomy, Cholecystectomy Additional Past Surgical Histo: D&C (MARCIO LEÓN MD) Smoking Status: Never Smoker Alcohol Use: None Drug Use: None (MARCIO LEÓN MD) General Adult EDM: Chief Complaint: CLAVICLE INJURY HPI: HPI: Patient is a 40 year old female who presents with complaints of neck pain, and left clavicle pain. Patient states approximately 1 week ago she fell down 34 stairs and injured her left shoulder/clavicle. Patient states that it spasms and the pain radiates into the neck. States that her son jumped on her back earlier today and this exacerbated her pain. She now is more significant neck pain. She denied any LOC, N/V, or confusion throughout the week. States that since her injury today has had worsening headache. She is unsure if she is on blood thinning medications, states that she may be anticoagulated due to valvular heart disease. (MARCIO LEÓN MD) Review of Systems: Review of Systems: Constitutional: Denies fever or chills. [] Eyes: Denies change in visual acuity. [] HENT: Denies nasal congestion or sore throat. [] Respiratory: Denies cough or shortness of breath. [] Cardiovascular: Denies chest pain or edema. [] GI: Denies abdominal pain, nausea, vomiting, bloody stools or diarrhea. [] Musculoskeletal: Reports neck pain, left clavicle, left shoulder pain. Integument: Denies rash. [] Neurologic: Reports headache. Denies focal weakness or sensory changes. [] Psychiatric: Denies depression or anxiety. [] (MARCIO LEÓN MD) Heart Score: C/O Chest Pain: No (MARCIO LEÓN MD) Current Medications: Current Medications Medications (Trade) Dose Ordered Sig/Alyse Start Time Stop Time Status Last Admin Dose Admin Acetaminophen/ Hydrocodone Bitart (Lortab 5/325) 1 tab 1X ONCE 03/24/21 04:45 03/24/21 04:46 UNV (MARCIO LEÓN MD) Allergies: Allergies: Allergies Coded Allergies Type Severity Reaction Last Updated Verified morphine Allergy Intermediate HIVES, ABD CRAMPS 06/30/13 Yes ondansetron HCl Allergy Mild ABD CRAMPS 06/30/13 Yes latex Adverse Reaction Intermediate Hives 02/04/19 Yes (MARCIO LEÓN MD) Physical Exam: PE: Into Constitutional: Well developed, well nourished, no acute distress, non-toxic appearance. [] HENT: Normocephalic, atraumatic Neck: No midline tenderness to palpation, patient is hesitant to range her neck fully. Cardiovascular:Heart rate regular rhythm, no murmur [] Lungs & Thorax: Complains of mild left-sided chest discomfort with palpation of the superior ribs. Complains of the left clavicular tenderness to palpation. No deformities noted. Bilateral breath sounds clear to auscultation [] Abdomen: Bowel sounds normal, soft, no tenderness, no masses, no pulsatile masses. Pelvis stable. [] Skin: Warm, dry, no erythema, no rash. [] Back: No tenderness, no CVA tenderness. [] Extremities: No tenderness, no cyanosis, no clubbing, ROM intact, no edema. [] Neurologic: Alert and oriented X 3, normal motor function, normal sensory function, no focal deficits noted. [] (MARCIO LEÓN MD) Current Patient Data: Vital Signs: Vital Signs Date Time Temp Pulse Resp B/P (MAP) Pulse Ox O2 Delivery O2 Flow Rate FiO2 03/24/21 04:30 97.7 88 17 120/65 (83) 100 Room Air 97.7 (MARCIO LEÓN MD) EKG: EKG: [] (MARCIO LEÓN MD) Radiology/Procedures: Radiology/Procedures: [] Impression: [facility] [address] [place], [place] [id number] IMAGING REPORT Signed PATIENT: ESTEPHANIA VARGHESE: [id number] : 1980 LOCATION: ER AGE: 40 SEX: F EXAM STATUS: PRE ER ORD. PHYSICIAN: MARCIO LEÓN MD REASON: fall down stairs PROCEDURE: CT HEAD AND CERVICAL SPINE WO PQRS Compliance Statement: One or more of the following individualized dose reduction techniques were utilized for this examination: 1. Automated exposure control 2. Adjustment of the mA and/or kV according to patient size 3. Use of iterative reconstruction technique CT HEAD AND CERVICAL SPINE WITHOUT CONTRAST History: Reason: fall down stairs Comparison: None. Procedure: Axial images are obtained of the head from the skull base through the vertex without IV contrast. Noncontrast helical CT of the cervical spine was performed. Axial, sagittal, and coronal reconstructions were obtained. Findings: The ventricles and sulci are normal for the patient's age. No mass-effect, midline shift, hemorrhage or obvious acute infarction is identified. Basilar cisterns are patent. Bone windows demonstrate no significant calvarial abnormality. The visualized paranasal sinuses are clear. Mastoid air cells are well aerated. There is no evidence of acute fracture or acute malalignment of the cervical spine. There are no perched or jumped facet joints. The vertebral body height and alignment are maintained. There is mild degenerative endplate spurring. No significant disc space narrowing is seen. There is a rim calcified right thyroid nodule. There is a faint hypodense right thyroid nodule. The visualized lung apices are clear. IMPRESSION: 1. No acute intracranial abnormality. 2. No acute fracture of the cervical spine. Electronically signed by: Yunier Etienne MD (03/24/2021 5:34 AM) [facility] DICTATED and SIGNED BY: YUNIER ETIENNE MD DATE: 03/24/21 [id number] (MARCIO LEÓN MD) Radiology/Procedures: IMAGING REPORT Signed PATIENT: ESTEPHANIA VARGHESE SACCOUNT: [id number] : 1980 LOCATION: ER AGE: 40 SEX: F EXAM STATUS: REG ER ORD. PHYSICIAN: MARCIO LEÓN MD REASON: fall down stairs PROCEDURE: SHOULDER 2+V LEFT XR SHOULDER_LEFT 2+ VIEWS, XR LEFT CLAVICLE, XR CHEST 1V Clinical Indication: Reason: fall down stairs / Comparison: AP chest February 21, 2019. Findings: The cardiomediastinal silhouette is normal. There are mild bibasilar airspace opacities, probably atelectasis. There is no pneumothorax. No pleural effusion is appreciated. There is no acute fracture or dislocation of the left clavicle. There is moderate AC arthropathy. No acute fracture or dislocation of the glenohumeral joint. The mineralization is normal. No acute displaced rib fracture is seen. IMPRESSION: 1. No acute fracture of the shoulder or left clavicle. 2. Mild bibasilar airspace disease. Electronically signed by: Yunier Etienne MD (03/24/2021 6:20 AM) [facility] DICTATED and SIGNED BY: YUNIER ETIENNE MD DATE: 03/24/21 [id number] IMAGING REPORT Signed PATIENT: ESTEPHANIA VARGHESE SACCOUNT: [id number] : 1980 LOCATION: ER AGE: 40 SEX: F EXAM STATUS: PRE ER ORD. PHYSICIAN: MARCIO LEÓN MD REASON: fall down stairs PROCEDURE: CT HEAD AND CERVICAL SPINE WO [facility] Compliance Statement: One or more of the following individualized dose reduction techniques were utilized for this examination: 1. Automated exposure control 2. Adjustment of the mA and/or kV according to patient size 3. Use of iterative reconstruction technique CT HEAD AND CERVICAL SPINE WITHOUT CONTRAST History: Reason: fall down stairs Comparison: None. Procedure: Axial images are obtained of the head from the skull base through the vertex without IV contrast. Noncontrast helical CT of the cervical spine was performed. Axial, sagittal, and coronal reconstructions were obtained. Findings: The ventricles and sulci are normal for the patient's age. No mass-effect, midline shift, hemorrhage or obvious acute infarction is identified. Basilar cisterns are patent. Bone windows demonstrate no significant calvarial abnormality. The visualized paranasal sinuses are clear. Mastoid air cells are well aerated. There is no evidence of acute fracture or acute malalignment of the cervical spine. There are no perched or jumped facet joints. The vertebral body height and alignment are maintained. There is mild degenerative endplate spurring. No significant disc space narrowing is seen. There is a rim calcified right thyroid nodule. There is a faint hypodense right thyroid nodule. The visualized lung apices are clear. IMPRESSION: 1. No acute intracranial abnormality. 2. No acute fracture of the cervical spine. Electronically signed by: Yunier Etienne MD (03/24/2021 5:34 AM) [facility] DICTATED and SIGNED BY: YUNIER ETIENNE MD DATE: 03/24/21 [id number] IMAGING REPORT Signed PATIENT: ESTEPHANIA VARGHESE: [id number] : 1980 LOCATION: ER AGE: 40 SEX: F EXAM STATUS: REG ER ORD. PHYSICIAN: MARCIO LEÓN MD REASON: fall down stairs PROCEDURE: CLAVICLE LEFT XR SHOULDER_LEFT 2+ VIEWS, XR LEFT CLAVICLE, XR CHEST 1V Clinical Indication: Reason: fall down stairs / Comparison: AP chest February 21, 2019. Findings: The cardiomediastinal silhouette is normal. There are mild bibasilar airspace opacities, probably atelectasis. There is no pneumothorax. No pleural effusion is appreciated. There is no acute fracture or dislocation of the left clavicle. There is moderate AC arthropathy. No acute fracture or dislocation of the glenohumeral joint. The mineralization is normal. No acute displaced rib fracture is seen. IMPRESSION: 1. No acute fracture of the shoulder or left clavicle. 2. Mild bibasilar airspace disease. Electronically signed by: Yunier Etienne MD (03/24/2021 6:20 AM) [facility] DICTATED and SIGNED BY: YUNIER ETIENNE MD DATE: 03/24/21 [id number] (KIMMY BROWN DO) Course & Med Decision Making: Course & Med Decision Making Pertinent Labs and Imaging studies reviewed. (See chart for details) Patient 40-year-old female presents with multiple complaints after 2 separate injuries. Vitals stable, non-toxic on arrival. She is unsure of her anticoagulation status, but thinks that she may be on a blood thinner. CT head, neck ordered. She is also complaining of clavicular, chest wall, and shoulder pain on the left so plain films have been ordered of affected areas. 0505 CT head and neck are negative. Other imaging pending at time of AM sign out. 0621 (MARCIO LEÓN MD) Course & Med Decision Making This patient was initially seen by Dr. León, please see his note for details. I assumed care at 0600 this morning. Imaging studies were pending, imaging studies were reviewed by me. CT imaging is negative for acute fracture or intracranial pathology. No acute fractures noted on plain films. There is some suggestion of bibasilar airspace disease on chest x-ray, the patient manifests no evidence of distress, she denies chest pain, cough, dyspnea. Oxygen saturations 100% on room air. I removed her rigid c-collar. I discussed the findings, differential diagnosis and plan of care with her. There is no current indication for further imaging, invasive exams or admission at this time based on current clinical presentation. Home care instructions were provided. Her biggest complaint is diffuse neck pain and spasms, I told her she may alternate ice and heat, she may alternate Tylenol and ibuprofen at home for pain control. I told her to follow-up with her PCP. Return precautions are given. (KIMMY BROWN DO) Dragon Disclaimer: Dragon Disclaimer: This electronic medical record was generated, in whole or in part, using a voice recognition dictation system. (MARCIO LEÓN MD) Departure Departure Impression: Primary Impression: Left shoulder pain Additional Impression: Neck pain Disposition: HOME / SELF CARE / HOMELESS Condition: STABLE Referrals: MAYI HIGH APRN (PCP) Patient Instructions: Muscle Strain, Shoulder Sprain, Soft Tissue Injury of the Neck Additional Instructions: You may use [id number] Tylenol and/or ibuprofen for pain control. You may alternate ice and heat. Use the muscle relaxer for severe pain. Return to the ER for acute injury or trauma, more severe pain, temperature 100.4 or higher, chest pain, shortness of breath, uncontrolled vomiting, focal weakness or other concerns. Follow-up with your primary care physician. Scripts Cyclobenzaprine Hcl (CYCLOBENZAPRINE HCL) 10 Mg Tablet 1 TAB PO BID for muscle spasm, #10 TAB Prov: KIMMY BROWN DO 03/24/21 MARCIO LEÓN MD Mar 24, 2021 05:05 KIMMY BROWN DO Mar 24, 2021 06:55
[2021-03-24] MEDS ORDERED: HYDROcodone/APAP 5/325MG 1 TAB TABLET PO ONE (05:15)
--- NOTE | 2021-03-24 05:37 | RAD ---
PQRS Compliance Statement: One or more of the following individualized dose reduction techniques were utilized for this examinat ion: 1. Automated exposure control 2. Adjustment of the mA and/or kV according to patient size 3. Use of iterative reconstruction technique CT HEAD AND CERVICAL SPINE WITHOUT CONTRAST History: Reason: fall down stairs Comparison: None. Procedure: Axial images are obtained of the head from the skull base through the vertex without IV co ntrast. Noncontrast helical CT of the cervical spine was performed. Axial, sagittal, and coronal rec onstructions were obtained. Findings: The ventricles and sulci are normal for the patient's age. No mass-effect, midline shift, hemorrhage or obvious acute infarction is identified. Basilar cistern s are patent. Bone windows demonstrate no significant calvarial abnormality. The visualized paranasal sinuses are clear. Mastoid air cells are well aerated. There is no evidence of acute fracture or acute malalignment of the cervical spine. There are no perched or jumped facet joints. The vertebral body height and alignment are maintained. There is mild degenerative endplate spurring. No significant disc space narrowing is seen. There is a rim calcified right thyroid nodule. There is a faint hypodense right thyroid nodule. The v isualized lung apices are clear. IMPRESSION: 1. No acute intracranial abnormality. 2. No acute fracture of the cervical spine. Electronically signed by: Yunier Etienne MD (03/24/2021 5:34 AM) [facility]
--- NOTE | 2021-03-24 06:23 | RAD ---
XR SHOULDER_LEFT 2+ VIEWS, XR LEFT CLAVICLE, XR CHEST 1V Clinical Indication: Reason: fall down stairs / Comparison: AP chest February 21, 2019. Findings: The cardiomediastinal silhouette is normal. There are mild bibasilar airspace opacities, probably ate lectasis. There is no pneumothorax. No pleural effusion is appreciated. There is no acute fracture or dislocation of the left clavicle. There is moderate AC arthropathy. No acute fracture or dislocation of the glenohumeral joint. The mineralization is normal. No acute di splaced rib fracture is seen. IMPRESSION: 1. No acute fracture of the shoulder or left clavicle. 2. Mild bibasilar airspace disease. Electronically signed by: Yunier Etienne MD (03/24/2021 6:20 AM) [facility]
[2021-03-24 06:40] VITALS: BP 137/79
[2021-03-24] MEDS ORDERED: CYCL10TA19 PO (07:02)
== END 2021-03-24 07:24 | disposition home or self-care (01) ==
LOC: ER 04:26
DX: M54.2 Cervicalgia (principal); M25.512 Pain in left shoulder; R07.89 Other chest pain; G89.11 Acute pain due to trauma; R51.9 Headache, unspecified; Z88.5 Allergy status to narcotic agent; Z91.040 Latex allergy status; J45.909 Unspecified asthma, uncomplicated; F31.9 Bipolar disorder, unspecified; E11.9 Type 2 diabetes mellitus without complications; I10 Essential (primary) hypertension; Z86.73 Personal history of transient ischemic attack (TIA), and cerebral infarction without residual deficits; W10.8XXA Fall (on) (from) other stairs and steps, initial encounter; Y93.89 Activity, other specified; Y92.89 Other specified places as the place of occurrence of the external cause; Y99.8 Other external cause status
CPT/HCPCS: 70450; 71045; 72125; 73000; 73030; 99285-25